=== PATIENT | female | born 1955 | race Caucasian/White ===

== ENCOUNTER 2025-01-01 21:36 | Emergency (ER) | payer MEDICARE, SELFPAY ==
--- OUTSIDE RECORDS SUMMARY | 2024-12-08 09:45 | XMS_ITS | Encounter Summary ---
Author Organization [facility] Address [address] [place] [id number] Care Team Providers Care Incident Response Lead Name Role Phone Juan A Gomez MD Primary Care Provider Reason for Referral * Imaging (Routine) - Open Specialty Diagnoses / Procedures Referred By Melva knight Referred To Contact Radiology Diagnoses Lung nodule Procedures CT CHEST WO CONTRAST Yasemin Mcdonald MD [address] [place] [address] Phone: tel: fax: Referral ID Status Reason Start Date Expiration Date Visits Re quested Visits Authorized [id number] Open 12/10/2025 1 1 Reason for Visit * Reason Comments COPD 1 year f/u Encounter Details Date Type Department Care Team (Late st Contact Info) Description 12/08/2024 8:45 AM CDT Office Visit [facility] [place] [address] [place] [address] Yasemin Mcdonald MD [address] [place] [address] Lung nodule (Primary Dx); Chronic obstructive pulmonary disease, unspecified COPD type (HCC); Dyspnea, unspecified type Social History Tobacco Use Types Packs/Day Years Used Date Smoking Tobacco: Former Cigarettes 3 32 1 958 - 1989 Smokeless Tobacco: Never Comments Unknown Sex and Gender Information Value Date Recorded Sex Assigned at Not on file Legal Sex Female 10:11 AM CDT Gender Identity Not on file Sexual Orientation Not on file documented as of this encounter Last Filed Vital Signs Vital Sign Reading Time Taken Comments Blood Pressure 132/82 12/08/2024 8:44 AM CDT Pulse 65 12/08/2024 8:44 AM CDT Temperature 36.4 C (97.6 F) 12/08/2024 8:44 AM CDT Respiratory Rate 18 12/08/2024 8:44 AM CDT Oxygen Saturation 96% 12/08/2024 8:44 AM CDT RA @ rest Inhaled Oxygen Concentration - - Weight 86.4 kg (190 lb 6.4 oz) 12/08/2024 8:44 A M CDT Height 165.1 cm (5' 5 ) 12/08/2024 8:44 AM CDT Body Mass Index 31.68 12/08/2024 8:44 AM CDT documented in this encounter Patient Instructions * Patient Instructions* Yasemin Mcdonald MD - 12/08/2024 8:45 AM CDT Continue albuterol as needed. I refilled it Continue Singulair. I refilled it Follow-up in 1 year documented in this encounter Progress Notes * Brittani Garcia RN - 12/08/2024 8:45 AM CDT BMI: Body mass index is 31.68 kg/m??. Follow up Plan: Provided exercise education for BMI above normal parameters. Provided nutritional education for BMIabove normal parameters. * Yasemin Mcdonald MD - 12/08/2024 8:45 AM CDT 12/08/2024 Aditi Wise PRIMARY CARE PROVIDER: Juan A Triplett REFERRING PROVIDER: Dr. Villar REASON FOR VISIT: Follow-up COPD HISTORY OF PRESENT ILLNESS Ms. Wise is a pleasant 68 year old woman who presents today for evaluation of shortness of Breath. She was kindly referred by Dr. Villar from Cardiology. Please see my initial consultation regarding this patient. She had started her on Spiriva, that did not help her, we stopped it. She feels better. She is taking Singulair. She had episodes of shortness of breath. This happened while [place] was [place] Also she was exposed to smoke. She is using albuterol as needed. She feels better. Had a CT chestwhich showed 6 mm nodule left upper lobe. Had some ground-glass opacities. Repeat CT chest showed stability. She has not had bronchitis since last time I saw her. Repeated CT chest a year after last CT shows stability. Review of Systems: As per HPI, otherwise all others negative. PHYSICAL EXAMINATION CONSTITUTIONAL: The patient is alert, oriented, well-developed, good nutrition, well-groomed. ENT: Inspection of nasal mucosa and septum is normal. Mallampati score of 3-4. She wears dentures. NECK: No masses. Normal symmetry. Trachea is in good position. Thyroid is not enlarged. No tenderness. No JVD. RESPIRATORY: Normal symmetry and expansion on inspection. No use of accessory muscles. Percussion of the chest is normal with no hyperresonance. Palpation of the chest shows no subcutaneous emphysema. Auscultation of the lungs shows normal breath sounds bilaterally. No rubs. CARDIOVASCULAR: Normal S1 and S2. No murmurs, rubs, or gallops. No leg swelling or varicosities. GASTROINTESTINAL: No masses or tenderness. Normal bowel sounds. No hepatosplenomegaly. LYMPHATICS: No increased lymph nodes in the neck or axillae. MUSCULOSKELETAL: Normal muscle tone and strength. No flaccidity or spasticity. Gait and stations are normal. EXTREMITIES: No clubbing, inflammation or petechiae. SKIN: No skin rashes, lesions or ulcers. NEUROLOGICAL/PSYCHIATRIC: The patient is oriented to time, place, and person. Mood and affect currently are normal. DATABASE Vitals: 12/08/24 0844 BP: 132/82 BP Site: Right Arm Patient Position: Sitting Pulse: 65 Resp: 18 Temp: 97.6 ??F (36.4 ??C) TempSrc: Temporal SpO2: 96% Weight: 190 lb 6.4 oz (86.4 kg) Height: 5' 5 SpO2: 96 % (RA @ rest) PFT 12/07/2017: - Spirometry: FEV1 is mildly reduced, FVC is normal, FEV1/FVC is reduced - Bronchodilator response: FEV1 improved by only 2% - Lung volumes: Total lung capacity is normal, residual volume is normal - Gas-exchange: Diffusion capacity is normal Impression 1. Mild obstructive ventilatory defect 2. No meaningful response to bronchodilators. This does not exclude positive clinical response to bronchodilators 3. Lung volumes are normal 4. Gas exchange is normal CXR 09/17/19: Negative for left rib fracture. Stable chest radiograph with no acute cardiopulmonary disease evident CT Chest: none PET: none Labs 04/14/18: CBC with differential, reviewed: EOS 6.3%. Echo 11/25/2017: 1. Mildly depressed LVEF of 50%. Mild LVH. TDS 2. Mildly dilated RV size with normal function. 3. TDS cannot see AV morphology. Recommend Cardiac MRI if morphology of the valve is a concern or murmur heard. 4. Calcified papillary muscle. CT chest 06/24/2022: 6 mm indeterminate nodule posterior left upper lobe lung. I do not know if the patient is in a highrisk category or low risk category. Fleischner Society guidelines recommend, for a 6-8 millimeter nodule, CT at 6-12 months in a low- risk or high risk patient. If it is stable, CT at 18 months would be recommended if the patient is in high risk category A few other small collections of benign appearing scarring posterior left lung Generalized arterial plaque No other suspicious findings seen CT chest 01/05/2023: Several groundglass opacities seen throughout the lungs bilaterally. The largest is actually within the right perihilar region measuring approximately 2 cm. All of these are unchanged from 06/24/2022) minutes is warranted repeat chest CT 3-[address] chest 07/05/2023: Groundglass and nodular opacities redemonstrated throughout both lungs. This likely represents an infectious or inflammatory process. Follow-up in 3-6 months for continued surveillance is recommended. CT chest 07/05/2024: Lungs show stable, sub-solid bilateral upper lobe lung nodules. A dominant nodule on right measures 3 cm from 3.2 cm previously. Dominant nodule on left measures 2.2 cm from the same previously. 2 additional smaller left upper lobe lung nodules are stable. No new lung abnormality is noted. No pleural or pericardial effusion or lymphadenopathy is seen. Visualized upper abdomen and the bones show no significant abnormality, except for a stable cirrhotic morphology of the liver without an obvious focal mass in its visualized portion. Spleen is not enlarged.. Assessment: Ms. Wise is a pleasant 69-year-old woman with mild COPD. Continue albuterol as needed for now. Holdoff on controller inhalers. Continue Singulair. Repeated CT chest shows stability. The ground-glass nodule has been stable for about 2 years. They need follow up since there ground-glass. Repeat CT chest in 1 year, follow up me 1 week after that. PLAN Continue albuterol as needed. I refilled it Continue Singulair. I refilled it Follow-up in 1 year, CT chest 1 week prior Patient verbalized understanding of plan and recommendations. We discussed the risks, benefits, side effects, and alternatives of the above plan. Shared decision making was used to determine the overall plan. The patient was given an after visit summary that included medications with directions, allergies, diagnoses and orders from this visit, and patient instruction information. I have informed the patient to contact our office sooner with new or worsening symptoms. Thank you for allowing us to participate in the care of this patient. CC: Dr. Jason Mcdonald MD [facility] board-certified Critical Care Medicine ABI board-certified Pulmonary Medicine [facility] board-certified Internal Medicine documented in this encounter Plan of Treatment Upcoming Encounters Date Type Department Care Team (Late st Contact Info) Description 12/19/2025 8:15 AM CDT Office Visit [facility] [place] [address] [place] [address] Yasemin Mcdonald MD [address] [facility] [place] [address] Scheduled Orders Name Type Priority Associated Diagnoses Orde r Schedule CT CHEST WO CONTRAST Imaging Routine Lung nodule Expected: 12/10/2025, Expires: 03/10/2026 documented as of this encounter Visit Diagnoses Diagnosis Lung nodule- Primary Solitary pulmonary nodule Chronic obstructive pulmonary disease, unspecified COPD type (HCC) Dyspnea, unspecified type documented in this encounter Care Teams Incident Response Lead Relationship Specialty Start Date End Date Juan A Gomez MD [address] [place] [address] PCP - General Family Medicine 07/28/19 documented as of this encounter
--- NOTE | 2025-01-01 21:41 | HMH.EDGENADL ---
Discharge Plan Disposition Patient Disposition: Home, Self-Care Referrals Follow up/Referrals: Provider,MD Tawnya [Primary Care Provider, Medical] - See instructions Activity Restrictions/Add. Instructions Additional Instructions/Restrictions: Discontinue your lisinopril. Please follow-up with your primary care provider. Please return to the emergency department if you develop any new or worsening symptoms or become concerned for your health. Clinical Impressions Clinical Impression: Angioedema Print Language Print Language: Ethiopian Discharge ED Provider: Viral An General Adult HPI <Viral An MD - Last Filed: 01/02/25 00:20> General Chief complaint: Allergic Reaction Stated complaint: diff breathing, itching, swelling Time Seen by Provider: 01/01/25 21:37 History of Present Illness HPI narrative: Aditi Wise is a 69-year-old female who presents to the emergency department with possible allergic reaction. Patient states that approximately 30 minutes prior to arrival, she felt full body itching and swelling to her hard palate. She states that she has dentures and they do not fit on the top now secondary to the swelling. She denies any shortness of breath. She denies any new foods or medications. She does state that she takes lisinopril. She states that this has not happened before. Related Data Allergies Allergy/AdvReac Type Severity Reaction Status Date / Time No Known Allergies Allergy Verified 01/01/25 21:45 PFS <Viral An MD - Last Filed: 01/02/25 00:20> [facility] Disclaimer: The information contained in this section may have been updated after the patient was seen, as this information can be updated by other users. Social History (Updated 01/02/25 @ 00:20 by Viral An MD) Smoking Status: Unknown if ever smoked alcohol intake: never current occupational status: employed and previously employed Travel in the last 8 weeks?: None Have you lived/traveled outside US in past 30 days?: No Contact w/someone who lives/traveled outside US past 30 days?: No Exposure to someone with infectious disease in past 14 days?: No Do you have a fever (greater than 100.4 F or 38 C)?: No Have you tested positive for COVID-19?: No Exposed to someone with COVID-19 in past 14 days?: No Do you have a sore throat?: No Do you have a cough?: No Do you have any weakness?: No Do you have any diarrhea?: No Are you experiencing any unusual bleeding?: No Do you have any muscle aches/pain?: No Do you have any abdominal pain?: No Are you experiencing loss of taste or smell?: No <Viral An MD - Last Filed: 01/02/25 00:20> ROS Obtained: Yes Systems reviewed as appropriate & no additional complaints except as documented Physical Exam <Viral An MD - Last Filed: 01/02/25 00:20> General General appearance: alert Comment: Appears anxious and tachypneic Head Head exam: atraumatic Eye Eye exam: Present normal appearance ENT ENT exam: Present normal external ear exam and other (Sublingual edema, enlarged tongue, edema of the hard palate) Neck Neck exam: Present full ROM Chest Chest inspection: Present symmetric chest wall rise Respiratory Respiratory exam: Present normal lung sounds bilaterally and respiratory distress (Increased work of breathing); Absent wheezes or stridor Cardiovascular Cardiovascular exam: Present regular rate and normal rhythm Abdominal Exam Abdominal exam: Present soft; Absent tenderness or guarding Extremities Exam Extremities exam: Present normal inspection Back Exam Back exam: Present normal inspection Neurological Exam Neurological exam: Present alert and oriented X3 Psychiatric Psychiatric exam: Present normal affect Skin Skin exam: Present warm, dry and rash (Erythema to her anterior chest wall and neck. Face appears flushed.) Medical Decision Making <Viral An MD - Last Filed: 01/02/25 00:20> Medical Records Screening: Per USPSTF and CDC recommendations, given the prevalence of disease in our region, it is our hospital?s policy to screen for HIV and viral Hepatitis for all patients aged 18 and over and those with ongoing risk factors. Geoffrey Inquiry Pt receiving controlled substance: No Vital Signs: 01/01/25 21:45 01/01/25 21:46 01/01/25 22:00 Temperature 97.8 F Temperature Source Oral Pulse Rate 89 85 Pulse Rate [Left] 98 H Respiratory Rate 22 20 Blood Pressure Blood Pressure [Right Arm] 144/59 H Blood Pressure Mean [Right Arm] 87 02 Sat by Pulse Oximetry 95 98 95 Oxygen Delivery Method Room Air 01/01/25 22:15 01/01/25 22:30 01/01/25 22:45 Temperature Temperature Source Pulse Rate 84 80 72 Pulse Rate [Left] Respiratory Rate 20 13 22 Blood Pressure Blood Pressure [Right Arm] Blood Pressure Mean [Right Arm] 02 Sat by Pulse Oximetry 95 95 94 L Oxygen Delivery Method 01/02/25 00:04 01/02/25 00:06 Temperature Temperature Source Pulse Rate 89 86 Pulse Rate [Left] Respiratory Rate 18 15 Blood Pressure 120/40 L Blood Pressure [Right Arm] Blood Pressure Mean [Right Arm] 02 Sat by Pulse Oximetry 95 95 Oxygen Delivery Method Lab Data Lab Results 01/01/25 21:45: WBC 10.3, RBC 4.08 L, Hgb 12.4, Hct 36.9 L, MCV 90.4, MCH 30.4, MCHC 33.6, RDW 12.7, Plt Count 266, MPV 10.2, Neut % (Auto) 31.9 L, Lymph % (Auto) 57.7 H, [place] % (Auto) 7.1, Eos % (Auto) 2.7, Baso % (Auto) 0.3, Neut # (Auto) 3.3, Lymph # (Auto) 5.9 H, [place] # (Auto) 0.7, Eos # (Auto) 0.3, Baso # (Auto) 0.0, Total Counted 100, Neutrophils % (Manual) 30 L, Lymphocytes % (Manual) 65 H, Monocytes % (Manual) 4, Eosinophils % (Manual) 1, PT 10.7, INR 0.96, APTT 23.7, Sodium 135 L, Potassium 4.4, Chloride 102, Carbon Dioxide 25, Anion Gap 12.4, BUN 24 H, Creatinine 1.30 H, Estimated Creat Clear 55, Estimated GFR 41 L, Est GFR ( Amer) 49 L, Glucose 151 H, Calcium 9.8, Total Bilirubin 0.5, AST 29, ALT 21, Alkaline Phosphatase 81, Total Protein 6.7, Albumin 4.2, Globulin 2.5, Albumin/Globulin Ratio 1.7, HCV Ab COLLINS w/Rflx PCR Qn Negative, HIV Ag/Ab Combo Qual Negative 01/01/25 21:45 01/01/25 21:45 Orders (Tests/Meds): ED MEDICATIONS Discontinued Medications Generic Name Dose Route Start Last Admin Trade Name Freq PRN Reason Stop Dose Admin Diphenhydramine HCl 50 mg 01/01/25 21:38 01/01/25 21:49 Diphenhydramine 50mg/Ml Vial IV 01/01/25 21:39 50 mg ONCE ONE Administration Epinephrine HCl 0.3 mg 01/01/25 21:38 01/01/25 21:47 Epinephrine 1 Mg/Ml Ampul IM 01/01/25 21:39 0.3 mg ONCE ONE Administration Tranexamic Acid 1,000 mg/ 260 mls @ 32.5 mls/hr 01/01/25 21:43 01/01/25 21:50 Sodium Chloride IV 01/01/25 21:44 32.5 mls/hr ONCE ONE Administration Methylprednisolone Sodium Succinate 125 mg 01/01/25 21:38 01/01/25 21:47 Methylprednisolone Sod Succ 125mg Vial IV 01/01/25 21:39 125 mg ONCE ONE Administration ORDERS Category Date Time Status CBC w/Auto Diff [Complete Blood Count Auto Diff] Stat Lab 01/01/25 21:45 Completed CMP [Comprehensive Metabolic Panel] Stat Lab 01/01/25 21:45 Completed HIV Combo Stat Lab 01/01/25 21:45 Completed Hepatitis C Ab Qual. W/ RFX Stat Lab 01/01/25 21:45 Completed PT INR [Prothrombin Time INR] Stat Lab 01/01/25 21:45 Completed PTT [Activated Partial Thrombo Time] Stat Lab 01/01/25 21:45 Completed Medical Decision Narrative: Aditi Wise is a 69-year-old female who presents to the emergency department with possible allergic reaction. Patient states that approximately 30 minutes prior to arrival, she felt full body itching and swelling to her hard palate. She states that she has dentures and they do not fit on the top now secondary to the swelling. She denies any shortness of breath. She denies any new foods or medications. She does state that she takes lisinopril. She states that this has not happened before. On arrival, patient is hemodynamically stable, afebrile, maintaining appropriate oxygen saturation on room air. Physical exam, stated above, revealed an anxious appearing female with increased work of breathing. She is speaking in mildly shortened sentences. She has edema to her sublingual space and her tongue appears enlarged. She does appear to have swelling of the hard palate. She has no wheezing and has good air movement bilaterally. She does appear to have an erythematous rash to her anterior chest wall up to her neck. Due to concern for lisinopril induced angioedema, patient was immediately administered a 0.3 mg of intramuscular epinephrine, 50 mg of IV Benadryl, 125 mg of methylprednisolone and 1 g of IV TXA over 10 minutes. Differential diagnosis includes, but is not limited to: Lisinopril induced angioedema, C1 esterase deficiency, histamine allergic reaction, among others. The most morbid conditions were considered and workup was based on these. Basic lab work was obtained. On reassessment, patient is sleeping comfortably. She is not in any distress. Her redness seems to have improved. Vital signs have remained stable. CBC is unremarkable nonactionable. Coags are unremarkable nonactionable. Mildly low sodium of 135. Creatinine and BUN are mildly elevated at 1.3 and 24 respectively. Is unclear with the patient's baseline's. These are grossly unremarkable nonactionable. At this time, patient's care was handed off to the oncoming physician, Dr. Laird, pending minimal 3-hour observation for recurrence of symptoms and symptomatic improvement. Patient was placed into ED observation status at 2200 for continuous cardiac monitoring and frequent reassessments. Total time in ED observation was [] <Kenny Laird MD - Last Filed: 01/02/25 00:45> Vital Signs: 01/01/25 21:45 01/01/25 21:46 01/01/25 22:00 Temperature 97.8 F Temperature Source Oral Pulse Rate 89 85 Pulse Rate [Left] 98 H Respiratory Rate 22 20 Blood Pressure Blood Pressure [Right Arm] 144/59 H Blood Pressure Mean [Right Arm] 87 02 Sat by Pulse Oximetry 95 98 95 Oxygen Delivery Method Room Air 01/01/25 22:15 01/01/25 22:30 01/01/25 22:45 Temperature Temperature Source Pulse Rate 84 80 72 Pulse Rate [Left] Respiratory Rate 20 13 22 Blood Pressure Blood Pressure [Right Arm] Blood Pressure Mean [Right Arm] 02 Sat by Pulse Oximetry 95 95 94 L Oxygen Delivery Method 01/02/25 00:04 01/02/25 00:06 Temperature Temperature Source Pulse Rate 89 86 Pulse Rate [Left] Respiratory Rate 18 15 Blood Pressure 120/40 L Blood Pressure [Right Arm] Blood Pressure Mean [Right Arm] 02 Sat by Pulse Oximetry 95 95 Oxygen Delivery Method Lab Data Lab Results 01/01/25 21:45: WBC 10.3, RBC 4.08 L, Hgb 12.4, Hct 36.9 L, MCV 90.4, MCH 30.4, MCHC 33.6, RDW 12.7, Plt Count 266, MPV 10.2, Neut % (Auto) 31.9 L, Lymph % (Auto) 57.7 H, [place] % (Auto) 7.1, Eos % (Auto) 2.7, Baso % (Auto) 0.3, Neut # (Auto) 3.3, Lymph # (Auto) 5.9 H, [place] # (Auto) 0.7, Eos # (Auto) 0.3, Baso # (Auto) 0.0, Total Counted 100, Neutrophils % (Manual) 30 L, Lymphocytes % (Manual) 65 H, Monocytes % (Manual) 4, Eosinophils % (Manual) 1, PT 10.7, INR 0.96, APTT 23.7, Sodium 135 L, Potassium 4.4, Chloride 102, Carbon Dioxide 25, Anion Gap 12.4, BUN 24 H, Creatinine 1.30 H, Estimated Creat Clear 55, Estimated GFR 41 L, Est GFR ( Amer) 49 L, Glucose 151 H, Calcium 9.8, Total Bilirubin 0.5, AST 29, ALT 21, Alkaline Phosphatase 81, Total Protein 6.7, Albumin 4.2, Globulin 2.5, Albumin/Globulin Ratio 1.7, HCV Ab COLLINS w/Rflx PCR Qn Negative, HIV Ag/Ab Combo Qual Negative Orders (Tests/Meds): ED MEDICATIONS Discontinued Medications Generic Name Dose Route Start Last Admin Trade Name Richardsonq PRN Reason Stop Dose Admin Diphenhydramine HCl 50 mg 01/01/25 21:38 01/01/25 21:49 Diphenhydramine 50mg/Ml Vial IV 01/01/25 21:39 50 mg ONCE ONE Administration Epinephrine HCl 0.3 mg 01/01/25 21:38 01/01/25 21:47 Epinephrine 1 Mg/Ml Ampul IM 01/01/25 21:39 0.3 mg ONCE ONE Administration Tranexamic Acid 1,000 mg/ 260 mls @ 32.5 mls/hr 01/01/25 21:43 01/01/25 21:50 Sodium Chloride IV 01/01/25 21:44 32.5 mls/hr ONCE ONE Administration Methylprednisolone Sodium Succinate 125 mg 01/01/25 21:38 01/01/25 21:47 Methylprednisolone Sod Succ 125mg Vial IV 01/01/25 21:39 125 mg ONCE ONE Administration ORDERS Category Date Time Status CBC w/Auto Diff [Complete Blood Count Auto Diff] Stat Lab 01/01/25 21:45 Completed CMP [Comprehensive Metabolic Panel] Stat Lab 01/01/25 21:45 Completed HIV Combo Stat Lab 01/01/25 21:45 Completed Hepatitis C Ab Qual. W/ RFX Stat Lab 01/01/25 21:45 Completed PT INR [Prothrombin Time INR] Stat Lab 01/01/25 21:45 Completed PTT [Activated Partial Thrombo Time] Stat Lab 01/01/25 21:45 Completed Medical Decision Narrative: Aditi Wise is a 69-year-old female who presents to the emergency department with possible allergic reaction. Patient states that approximately 30 minutes prior to arrival, she felt full body itching and swelling to her hard palate. She states that she has dentures and they do not fit on the top now secondary to the swelling. She denies any shortness of breath. She denies any new foods or medications. She does state that she takes lisinopril. She states that this has not happened before. On arrival, patient is hemodynamically stable, afebrile, maintaining appropriate oxygen saturation on room air. Physical exam, stated above, revealed an anxious appearing female with increased work of breathing. She is speaking in mildly shortened sentences. She has edema to her sublingual space and her tongue appears enlarged. She does appear to have swelling of the hard palate. She has no wheezing and has good air movement bilaterally. She does appear to have an erythematous rash to her anterior chest wall up to her neck. Due to concern for lisinopril induced angioedema, patient was immediately administered a 0.3 mg of intramuscular epinephrine, 50 mg of IV Benadryl, 125 mg of methylprednisolone and 1 g of IV TXA over 10 minutes. Differential diagnosis includes, but is not limited to: Lisinopril induced angioedema, C1 esterase deficiency, histamine allergic reaction, among others. The most morbid conditions were considered and workup was based on these. Basic lab work was obtained. On reassessment, patient is sleeping comfortably. She is not in any distress. Her redness seems to have improved. Vital signs have remained stable. CBC is unremarkable nonactionable. Coags are unremarkable nonactionable. Mildly low sodium of 135. Creatinine and BUN are mildly elevated at 1.3 and 24 respectively. Is unclear with the patient's baseline's. These are grossly unremarkable nonactionable. At this time, patient's care was handed off to the oncoming physician, Dr. Laird, pending minimal 3-hour observation for recurrence of symptoms and symptomatic improvement. Patient was placed into ED observation status at 2200 for continuous cardiac monitoring and frequent reassessments. Sisi FIGUEROA: I assumed care of the patient at the time of handoff from the prior provider. On reassessment, patient reports marked symptomatic improvement and continues to appear comfortable. She reports that she is feeling great and is ready to go. Given this, patient was needed for her discharge with outpatient management and does not require admission. Total time in observation 3 hours and 45 minutes. Interactive discussion was had with patient regarding her discharge. Less than 30 minutes were utilized to prepare discharge. Critical Care <Viral An MD - Last Filed: 01/02/25 00:20> Critical Care Time Critical Care Time: Yes Attestation: On 01/01/25, the high probability of a clinically significant, sudden or life threatening deterioration of the following system(s) required my full and direct attention, intervention and personal management. The time I documented below is in addition to time spent performing reported procedures but includes the following listed in this critical care notation. Total Time Total Critical Care Time: 35
[2025-01-01 21:45] VITALS: PULSE 89; O2SAT 95
[2025-01-01 21:46] VITALS: BP 144/59; PULSE 98; RESP 22; TEMP 36.6; O2SAT 98; BMI 30.6
[2025-01-01] MEDS: METHYLPREDNISOLONE SOD SUCC 125MG VIAL 125 MG IV (21:47)
--- OUTSIDE RECORDS SUMMARY | 2025-01-01 21:51 | XMS_ITS | Encounter Summary ---
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 Name Role Phone Juan A Gomez MD Primary Care Provider [phone] Zac Justin MD Unavailable Prosper Cutler MD Unavailable Jose Carlos Dunn DO Unavailable Rupert Byers MD Unavailable [phone] Ines Villar MD Unavailable [phone] Opal Henderson MD Unavailable Encounter Details Date Type Department Care Team (Late st Contact Info) Description 02/06/2016 Transcribe Orders [facility] [address] [place] [address] Juan A Gomez MD [address] [place] [address] Encounter for screening mammogram for malignant neoplasm of breast (Primary Dx) Social History Tobacco Use Types Packs/Day Years Used Date Smoking Tobacco: Former Cigarettes 2 17 0 11/20/1972 - 11/20/1989 Alcohol Use Standard Drinks/Week Comments Yes 0 (1 standard drink = 0.6 oz pur e alcohol) rarely Comments No Sex and Gender Information Value Date Recorded Sex Assigned at Not on file Legal 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 Narrative 02/21/2016 4:23 PM SPINNING ROOM WORKER SCREENING DIGITAL BILATERAL MAMMOGRAPHY WITH DIGITAL BREAST TOMOSYNTHESIS (3-D) Indication: Routine screening. Comparison: 02/18/15, 02/15/14, 11/29/12 Breast Composition:. There are scattered fibroglandular densities. Technique: The exam was done with digital breast tomosynthesis and was reviewed with computer-aided detection (CAD). Findings: There are no suspicious nodules, suspicious clusters of microcalcifications, or areas of architectural distortion to suggest malignancy. No significant change from the prior exams. Juan A Gomez MD IMG MAMMOGRAPHY ORDERABLES F inal Result documented in this encounter Visit Diagnoses Diagnosis Encounter for screening mammogram for malignant neoplasm of breast- Primary Other screening mammogram Encounter for screening mammogram for malignant neoplasm of breast Other screening mammogram documented in this encounter Additional Health Concerns Infection Onset Date Last Indicated Resolved Time COVID - 19 Rule Out 01/17/2020 01/17/2020 01/17/20 20 7:48 PM CDT COVID - 19 Rule Out 04/11/2020 04/11/2020 04/12/19 21 3:29 PM SPINNING ROOM WORKER COVID - 19 Confirmed 04/11/2020 04/11/2020 021 12:24 AM SPINNING ROOM WORKER documented as of this encounter Care Teams Dough Mixing Machine Operator Relationship Specialty Start Date End Date Juan A Gomez MD [address] [place] [id number] PCP - General Family Medicine 02/20/11 Zac Justin MD [address] [place] [address] Cardiology 06/29/13 11/16/17 Prosper Cutler MD [address] [place] [address] Otolaryngology 07/10/15 Jose Carlos Dunn DO [address] [place] [address] Consulting Physician Cardiology 02/06/16 11/16/17 Rupert Byers MD [address] [place] [address] Obstetrics & Gynecology Gynecology 02/06/16 Inse Villar MD [address] [place] [phone] Internal Medicine - Cardiovascular Disease 11/17/17 Opal Henderson MD [address] [place] [phone] Cardiology 11/29/17 06/17/22 documented as of this encounter Additional Source Comments IMPORTANT NOTICES REGARDING PATIENT RECORDS DISCLOSED THROUGH CARE EVERYWHERE:1. If the informationreleased to you contains information about AIDs or HIVtest results, that information has been disclosed to you from records whoseconfidentiality is protected by state law ([place]RS 214.625). State law proh ibitsyou from making any further disclosure of such information relating to AIDS orHIV without the specific written consent of the person to whom such informationpertains, or as otherwise permitted by state law. A general authorization forthe release of medical or other information is NOT sufficient for this purpose.2. If the information released to you contains information about alcohol ordrug abuse diagnosis, treatment for such abuse, or referrals for treatment, andif the release was made by a program as defined in 42 CFR 2.11, thisinformation has been disclosed to you from records protected by Federalconfidentiality rules ( TheFederal rules restrict any use of the information to criminally investigate orprosecute any alcohol or drug abuse patient.3. If the information released to you contains information about a person'smental health or chemical dependency, you may not redisclose or otherwisereveal information concerning the mental health or chemical dependency of thatperson, beyond the purpose for which the disclosure was made, without firstobtaining that person's specific written consent to the redisclosure. [id number].[facility]
--- OUTSIDE RECORDS SUMMARY | 2025-01-01 21:51 | XMS_ITS | Encounter Summary ---
Author Organization [employer] Address [address] [place] [address] Care Team Providers Care Food Service Sales Representatives Name Role Phone Juan A Gomez MD Primary Care Provider [phone] Prosper Cutler MD Unavailable [phone] Rupert Byers MD Unavailable [phone] Ines Villar MD Unavailable [phone] Opal Henderson MD Unavailable [phone] Reason for Referral * Preauth (Routine) - Closed Specialty Diagnoses / Procedures Referred By Contac t Referred To Contact Radiology Diagnoses Shortness of breath Procedures CT chest without contrast Juan A Gomez MD [address] [place] [address] Phone: tel: fax: Referral ID Status Reason Start Date Expiration Date Visits Re quested Visits Authorized [id number] Closed 06/23/2022 08/22/2022 1 1 CE CAPTAIN PRECINCT Encounter Details Date Type Department Care Team (Late st Contact Info) Description 06/02/2022 Transcribe Orders Central Scheduling [address] [id number] Juan A Gomez MD [address] [facility] [place] [address] Shortness of breath (Primary Dx) Social History Tobacco Use Types Packs/Day Years Used Date Smoking Tobacco: Former Cigarettes 2 17 0 11/20/1972 - 11/20/1989 Smokeless Tobacco: Never Alcohol Use Standard Drinks/Week Comments Yes 0 (1 standard drink = 0.6 oz pur e alcohol) rarely Safety and Environment Answer Date Devon rded How often does anyone, rod adam family and friends, physically hurt you? Not on file 05/21/2022 How often does anyone, rod adam family and friends, insult or talk down to you? Not on file 05/21/2022 How often does anyone, rod adam family and friends, threaten you with harm? Not on file 05/21/2022 How often does anyone, rod adam family and friends, scream or curse at you?' Not on file 05/21/2022 Comments No Sex and Gender Information Value Date Recorded Sex Assigned at Not on file Legal Sex Female 1:32 AM POLICE CAPTAIN PRECINCT Gender Identity Not on file Sexual Orientation Not on file Occupation Industry Job Start Date Job End Date Not on file Not on file Not on file Not on file documented as of this encounter Plan of Treatment Not on file documented as of this encounter Results * CT chest without contrast (06/24/2022 11:01 AM CDT) Anatomical Region Laterality Modality Chest, CTBODY Computed Tomogra phy 06/24/2022 12:1 0 PM CDT Impressions 06/24/2022 12:17 PM CDT 6 mm indeterminate nodule posterior left upper lobe lung. I do not know if the patient is in a high risk category or low risk category. Fleischner Society guidelines recommend, for a 6-8 millimeter nodule, CT at 6-12 months in a low-risk or high risk patient. If it is stable, CT at 18 months would be recommended if the patient is in high risk category A few other small collections of benign appearing scarring posterior left lung Generalized arterial plaque No other suspicious findings seen [id number] Narrative 06/24/2022 12:17 PM CDT NONCONTRAST CHEST CT: Indication: Shortness of breath. No other 3.. Technique: Spiral axial images were made through chest, archived at 3 mm. Findings: Lungs show no gross fibrosis or interstitial disease. Within posterior left upper lobe, axial image 20, there is a 6 mm noncalcified nodule with mildly spiculated borders. Just lateral to this, from about image 14 through 19, there is some slight patchy scarring. There is a dense benign granuloma in the same vicinity on image 21. Mild posterior scarring posterior left lower lobe from about image 28 through 32. No other lung nodule or mass or infiltrate is visible, or significant airway abnormality. No fluid/mass/plaque in pleural or pericardial space There is no evident adenopathy within dionisio or mediastinum or upper abdomen, or chest wall. Heart size is normal. Aorta shows mild scattered plaque without dilation. Upper abdomen shows no mass or abnormal fluid There is no evident lytic or blastic bony focus.. Procedure Note Cruz Bee Jr., MD - 06/24/[address]: Indication: Shortness of breath. No other 3.. Technique: Spiral axial images were made through chest, archived at 3mm. Findings: Lungs show no gross fibrosis or interstitial disease. Within posterior left upper lobe, axial image 20, there is a 6 mmnoncalcified nodule with mildly spiculated borders. Just lateral to this, from about image 14 through 19, there is some slightpatchy scarring. There is a dense benign granuloma in the same vicinity onimage 21. Mild posterior scarring posterior left lower lobe from aboutimage 28 through 32. No other lung nodule or mass or infiltrate is visible, or significantairway abnormality. No fluid/mass/plaque in pleural or pericardial space There is no evident adenopathy within dionisio or mediastinum or upperabdomen, or chest wall. Heart size is normal. Aorta shows mild scattered plaque withoutdilation. Upper abdomen shows no mass or abnormal fluid There is no evident lytic or blastic bony focus.. IMPRESSION: 6 mm indeterminate nodule posterior left upper lobe lung. I do not knowif the patient is in a high risk category or low risk category. [facility] guidelines recommend, for a 6-8 millimeter nodule, CT at 6-12months in a low-risk or high risk patient. If it is stable, CT at 18 months would be recommended if thepatient is in high risk category A few other small collections of benign appearing scarring posterior leftlung Generalized arterial plaque No other suspicious findings seen [id number] Juan A Gomez MD IMG CT ORDERABLES Final Resu lt documented in this encounter Visit Diagnoses Diagnosis Shortness of breath- Primary Shortness of breath documented in this encounter Care Teams Food Service Sales Representatives Relationship Specialty Start Date End Date Juan A Gomez MD [address] [facility] [place] [address] PCP - General Family Medicine 02/20/11 Prosper Cutler MD [address] [place] [address] Otolaryngology 07/10/15 Rupert Byers MD [address] [facility] [address] Obstetrics & Gynecology Gynecology 02/06/16 Ines Villar MD [address] [place] [address] Internal Medicine - Cardiovascular Disease 11/17/17 Opal Henderson MD [address] [place] [phone] Cardiology 11/29/17 06/17/22 documented as of [...] person's specific written consent to the redisclosure. [id number].[facility]
--- OUTSIDE RECORDS SUMMARY | 2025-01-01 21:51 | XMS_ITS | Encounter Summary ---
Author Organization [employer] Address [address] [place] [address] Care Team Providers Care Painter Name Role Phone Juan A Gomez MD Primary Care Provider [phone] Prosper Cutler MD Unavailable Rupert Byers MD Unavailable [phone] Ines Villar MD Unavailable [phone] Opal Henderson MD Unavailable Encounter Details Date Type Department Care Team (Latest Contact Info) Description 03/05/2020 Transcribe Orders [facility] [address] [id number] Herson Dubon MD, [place] [address] Nausea (Primary Dx); Malignant neoplasm of stomach, unspecified location Social History Tobacco Use Types Packs/Day Years Used Date Smoking Tobacco: Former Cigarettes 2 17 0 11/20/1972 - 11/20/1989 Smokeless Tobacco: Never Alcohol Use Standard Drinks/Week Comments Yes 0 (1 standard drink = 0.6 oz pur e alcohol) rarely Comments No Sex and Gender Information Value Date Recorded Sex Assigned at Not on file Legal Sex Female 1:32 AM STUDENT SERVICES DEAN Gender Identity Not on file Sexual Orientation Not on file Occupation Industry Job Start Date Job End Date Not on file Not on file Not on file Not on file COVID-19 Exposure Response Date Recorded In the last month, have you been in contact with someone who was confirmed or suspected to have Coronavirus / COVID-19? Unable to assess 03/05/2020 5:44 PM STUDENT SERVICES DEAN documented as of this encounter Plan of Treatment Not on file documented as of this encounter Results * ERNIE test-tissue (03/05/2020 9:31 AM STUDENT SERVICES DEAN) Specimen description GASTRIC MUCOSAL BIOPSY [facility] Special Requests NONE 03/05/2020 5:45 PM STUDENT SERVICES DEAN [facility] Culture NEGATIVE AT 24 HOURS (ET: 1 DAY 3 HOURS) 03/06/2020 12:38 PM STUDENT SERVICES DEAN [facility] Gastric Bx BIOPSY SPECIMEN / Unknown 03/05/2020 9:31 AM STUDENT SERVICES DEAN 03/05/2020 5:54 PM STUDENT SERVICES DEAN [facility] Dubon MD, FACS MICROBIOLOGY - G ENERAL ORDERABLES Final Result [facility] [address] [place] [address] documented in this encounter Visit Diagnoses Diagnosis Nausea- Primary Nausea alone Malignant neoplasm of stomach, unspecified location (CMS/HCC) documented in this encounter Additional Health Concerns Infection Onset Date Last Indicated Resolved Time COVID - 19 Rule Out 04/11/2020 04/11/2020 04/12/19 21 3:29 PM STUDENT SERVICES DEAN COVID - 19 Confirmed 04/11/2020 04/11/2020 021 12:24 AM STUDENT SERVICES DEAN documented as of this encounter Care Teams Painter Relationship Specialty Start Date End Date Juan A Gomez MD [address] [place] [address] PCP - General Family Medicine 02/20/11 Prosper Cutler MD [address] [place] [address] Otolaryngology 07/10/15 Rupert Byers MD [address] [place] [address] Obstetrics & Gynecology Gynecology 02/06/16 Ines Villar MD [address] [place] [phone] Internal Medicine - Cardiovascular Disease 11/17/17 Opal Henderson MD [address] [place] [phone] Cardiology 11/29/17 06/17/22 documented as of [...] person's specific written consent to the redisclosure. [id number].[facility]
--- OUTSIDE RECORDS SUMMARY | 2025-01-01 21:51 | XMS_ITS | Encounter Summary ---
Author Organization [employer] Address [address] [place] [address] Care Team Providers Care Director Veterinary Name Role Phone Juan A Gomez MD Primary Care Provider [phone] Zac Justin MD Unavailable [phone] Prosper Cutler MD Unavailable Jose Carlos Dunn DO Unavailable Rupert Byers MD Unavailable [phone] Ines Villar MD Unavailable [phone] Opal Henderson MD Unavailable Encounter Details Date Type Department Care Team (Latest Contact Info) Description 01/30/[address] [facility] Radiology [address] [place] [address] Rupert Byres MD [address] [place] [address] Other screening mammogram (Primary Dx) Social History Tobacco Use Types Packs/Day Years Used Date Smoking Tobacco: Former Cigarettes 2 17 0 11/20/1972 - 11/20/1989 Alcohol Use Standard Drinks/Week Comments No 0 (1 standard drink = 0.6 oz pur e alcohol) Comments No Sex and Gender Information Value Date Recorded Sex Assigned at Not on file Legal Sex Female 1:32 AM ROBOTIC MACHINE TENDER PRODUCTION Gender Identity Not on file Sexual Orientation Not on file Occupation Industry Job Start Date Job End Date Not on file Not on file Not on file Not on file documented as of this encounter Plan of Treatment Not on file documented as of this encounter Results * Mammography screening digital bilateral w/ CAD (02/15/2014 4:40 PM ROBOTIC MACHINE TENDER PRODUCTION) Anatomical Region Laterality Modality Breast Bilateral Mammography 02/15/2014 5:08 PM ROBOTIC MACHINE TENDER PRODUCTION Impressions 02/15/2014 5:10 PM ROBOTIC MACHINE TENDER PRODUCTION Benign (BI-RADS 2) Recommendation: Next mammogram in one year. Narrative 02/15/2014 5:10 PM ROBOTIC MACHINE TENDER PRODUCTION SCREENING DIGITAL BILATERAL MAMMOGRAPHY WITH DIGITAL BREAST TOMOSYNTHESIS (3-D) Indication: Routine screening. Comparison: 11/29/12, 01/12/11, 01/10/10 Breast Composition:. There are scattered fibroglandular densities. Technique: The exam was done with digital breast tomosynthesis and was reviewed with computer-aided detection (CAD). Findings: There are no suspicious nodules, suspicious clusters of microcalcifications, or areas of architectural distortion to suggest malignancy. There is a new small benign dystrophic calcification in the lateral periareolar left breast. Procedure Note Ayush Maloney MD - 02/15/2014 SCREENING DIGITAL BILATERAL MAMMOGRAPHY WITH DIGITAL BREAST TOMOSYNTHESIS(3-D) Indication: Routine screening. Comparison: 11/29/12, 01/12/11, 01/10/10 Breast Composition:. There are scattered fibroglandular densities. Technique: The exam was done with digital breast tomosynthesis and wasreviewed with computer-aided detection (CAD). Findings: There are no suspicious nodules, suspicious clusters ofmicrocalcifications, or areas of architectural distortion to suggestmalignancy. There is a new small benign dystrophic calcification in thelateral periareolar left breast. IMPRESSION: Benign (BI-RADS 2) Recommendation: Next mammogram in one year. Rupert Byers MD IMG MAMMOGRAPHY ORDERABLES Fin al Result documented in this encounter Visit Diagnoses Diagnosis Other screening mammogram- Primary Other screening mammogram documented in this encounter Additional Health Concerns Infection Onset Date Last Indicated Resolved Time COVID - 19 Rule Out 01/17/2020 01/17/2020 01/17/20 20 7:48 PM CDT COVID - 19 Rule Out 04/11/2020 04/11/2020 04/12/19 21 3:29 PM ROBOTIC MACHINE TENDER PRODUCTION COVID - 19 Confirmed 04/11/2020 04/11/2020 021 12:24 AM ROBOTIC MACHINE TENDER PRODUCTION documented as of this encounter Care Teams Director Veterinary Relationship Specialty Start Date End Date Juan A Gomez MD [address] [place] [address] PCP - General Family Medicine 02/20/11 Zac Justin MD [address] [place] [address] Cardiology 06/29/13 11/16/17 Prosper Cutler MD [address] [place] [address] Otolaryngology 07/10/15 Jose Carlos Dunn DO [address] [place] [address] Consulting Physician Cardiology 02/06/16 11/16/17 Rupert Byers MD [address] [place] [address] Obstetrics & Gynecology Gynecology 02/06/16 Ines Villar MD [address] [place] [address] Internal Medicine - Cardiovascular Disease 11/17/17 Opal Henderson MD [address] [place] [address] [place] [address] Cardiology 11/29/17 06/17/22 documented as of [...] person's specific written consent to the redisclosure. [id number].[facility]
--- OUTSIDE RECORDS SUMMARY | 2025-01-01 21:51 | XMS_ITS | Encounter Summary ---
Author Organization [facility] Address [address] [place] [id number] Care Team Providers Care Vamp Seamer Name Role Phone Juan A Gomez MD Primary Care Provider [phone] Reason for Visit * Reason Onset Date Comments Other 12/08/[address] Encounter Details Date Type Department Care Team (Late Contact Info) Description 12/08/2024 Telephone [facility] [address] [address] Rebecca Clinton CRT Other (Chest CT) Social History Tobacco Use Types Packs/Day Years Used Date Smoking Tobacco: Former Cigarettes 3 32 1 8 - 1989 Smokeless Tobacco: Never Comments Unknown Sex and Gender Information Value Date Recorded Sex Assigned at Not on file Legal Sex Female 10:11 AM CDT Gender Identity Not on file Sexual Orientation Not on file documented as of this encounter Miscellaneous Notes * Telephone Encounter - Rebecca Clinton CRT - 12/08/2024 9:27 AM CDT TCT Pt advising Dr. Mcdonald does want to get one more CT next year prior to her appointment & someone from [facility] Scheduling will call to schedule it. Pt verbalized understanding. documented in this encounter Plan of Treatment Upcoming Encounters Date Type Department Care Team (Late st Contact Info) Description 12/19/2025 8:15 AM CDT [facility] [address] [address] Yasemin Mcdonald MD [address] [facility] [place] [address] documented as of this encounter Visit Diagnoses Not on filedocumented in this encounter Care Teams Vamp Seamer Relationship Specialty Start Date End Date Juan A Gomez MD [address] [place] [address] PCP - General Family Medicine 07/28/19 documented as of this encounter
--- OUTSIDE RECORDS SUMMARY | 2025-01-01 21:51 | XMS_ITS | Encounter Summary ---
Author Organization [employer] Address [address] [place] [address] Care Team Providers Care Security Incident Handler Name Role Phone Juan A Gomez MD Primary Care Provider [phone] Prosper Cutler MD Unavailable [phone] Rupert Byers MD Unavailable [phone] Ines Villar MD Unavailable [phone] Opal Henderson MD Unavailable [phone] Reason for Referral * Preauth (Routine) - Closed Specialty Diagnoses / Procedures Referred By Contac t Referred To Contact Radiology Diagnoses Nausea Unspecified abdominal pain Procedures CT Abdomen Pelvis w/wo Contrast per Contrast Protocol Juan A Gomez MD [facility] [place] [address] Phone: tel: fax: Referral ID Status Reason Start Date Expiration Date Visits Re quested Visits Authorized [id number] Closed 03/13/2020 06/10/2020 1 1 L CLEANER TUBE Encounter Details Date Type Department Care Team (Late st Contact Info) Description 03/11/2020 Transcribe Orders Central Scheduling [address] [phone] Juan A Gomez MD [address] [facility] [place] [address] Nausea (Primary Dx); Unspecified abdominal pain Social History Tobacco Use Types Packs/Day Years Used Date Smoking Tobacco: Former Cigarettes 2 17 0 11/20/1972 - 11/20/1989 Smokeless Tobacco: Never Alcohol Use Standard Drinks/Week Comments Yes 0 (1 standard drink = 0.6 oz pur e alcohol) rarely Comments No Sex and Gender Information Value Date Recorded Sex Assigned at Not on file Legal Sex Female 1:32 AM STILL CLEANER TUBE Gender Identity Not on file Sexual Orientation Not on file Occupation Industry Job Start Date Job End Date Not on file Not on file Not on file Not on file COVID-19 Exposure Response Date Recorded In the last month, have you been in contact with someone who was confirmed or suspected to have Coronavirus / COVID-19? Unable to assess 03/05/2020 5:44 PM STILL CLEANER TUBE documented as of this encounter Plan of Treatment Not on file documented as of this encounter Results * CT Abdomen Pelvis w/wo Contrast per Contrast Protocol (03/20/2020 9:04 AM STILL CLEANER TUBE) Anatomical Region Laterality Modality Abdomen, Pelvis, Hip, CTBODY Com puted Tomography 03/20/2020 11:0 5 AM STILL CLEANER TUBE Impressions 03/20/2020 11:16 AM STILL CLEANER TUBE No acute intra-abdominal or pelvic process. [id number] Narrative 03/20/2020 11:[address] ABDOMEN AND PELVIS WITH AND WITHOUT CONTRAST Indication: Nausea. Unspecified abdominal pain. Technique: Multiple axial CT images are obtained of the abdomen and pelvis both prior to and following administration of 100 cc of Omnipaque 350 intravenous contrast agent. Oral contrast was utilized. Comparison: 12/11/2010. Abdominal Findings: Lung bases are clear with exception of a benign calcified granuloma on the left. There is a small stable benign cyst in the subcapsular aspect of the periphery of the right lobe of liver on axial image 37. Postcholecystectomy changes are noted. No suspicious focal hepatic lesion. Spleen, pancreas and adrenals unremarkable. Kidneys without suspicious focal lesion or hydronephrosis. Tiny nonobstructing stone again noted in mid pole of left kidney. Abdominal aorta normal in caliber. No retroperitoneal adenopathy. Abdominal portions of GI tract within normal limits. No free fluid or free air. There is been a prior ventral hernia repair on the right. No ventral hernia evident currently. Pelvic Findings: Urinary bladder and distal ureters unremarkable free of stones. Uterus within normal limits. Pelvic portions of GI tract within normal limits. No free fluid or suspicious focal pelvic mass. Bone windows show no suspicious lytic or blastic lesions in the abdomen or pelvis. Procedure Note Remberto Delacruz MD - 03/20/2020 CT ABDOMEN AND PELVIS WITH AND WITHOUT CONTRAST Indication: Nausea. Unspecified abdominal pain. Technique: Multiple axial CT images are obtained of the abdomen andpelvis both prior to and following administration of 100 cc of [id number] intravenous contrast agent. Oral contrast was utilized. Comparison: 12/11/2010. Abdominal Findings: Lung bases are clear with exception of a benigncalcified granuloma on the left. There is a small stable benign cyst inthe subcapsular aspect of the periphery of the right lobe of liver onaxial image 37. Postcholecystectomy changes are noted. No suspicious focal hepatic lesion. Spleen, pancreas andadrenals unremarkable. Kidneys without suspicious focal lesion orhydronephrosis. Tiny nonobstructing stone again noted in mid pole of leftkidney. Abdominal aorta normal in caliber. No retroperitoneal adenopathy.Abdominal portions of GI tract within normal limits. No free fluid or freeair. There is been a prior ventral hernia repair on the right. No ventralhernia evident currently. Pelvic Findings: Urinary bladder and distal ureters unremarkable free ofstones. Uterus within normal limits. Pelvic portions of GI tract withinnormal limits. No free fluid or suspicious focal pelvic mass. Bone windows show no suspicious lytic or blastic lesions in the abdomen orpelvis. IMPRESSION: No acute intra-abdominal or pelvic process. [id number] us Juan A Gomez MD IMG CT ORDERABLES Final Resu lt documented in this encounter Visit Diagnoses Diagnosis Nausea- Primary Nausea alone Unspecified abdominal pain Nausea Nausea alone Unspecified abdominal pain documented in this encounter Additional Health Concerns Infection Onset Date Last Indicated Resolved Time COVID - 19 Rule Out 04/11/2020 04/11/2020 04/12/19 21 3:29 PM STILL CLEANER TUBE COVID - 19 Confirmed 04/11/2020 04/11/2020 021 12:24 AM STILL CLEANER TUBE documented as of this encounter Care Teams Security Incident Handler Relationship Specialty Start Date End Date Juan A Gomez MD [facility] [place] [address] PCP - General Family Medicine 02/20/11 Prosper Cutler MD [address] [place] [address] Otolaryngology 07/10/15 Rupert Byers MD [address] [place] [address] Obstetrics & Gynecology Gynecology 02/06/16 Ines Villar MD [address] [place] [phone] Internal Medicine - Cardiovascular Disease 11/17/17 Opal Henderson MD [address] [place] [phone] Cardiology 11/29/17 06/17/22 documented as of [...] person's specific written consent to the redisclosure. [id number].[facility]
--- OUTSIDE RECORDS SUMMARY | 2025-01-01 21:51 | XMS_ITS | Encounter Summary ---
Author Organization [facility] Address [address] [place] [address] Care Team Providers Care Hot Tamale Worker Name Role Phone Juan A Gomez MD Primary Care Provider [phone] Prosper Cutler MD Unavailable Rupert Byers MD Unavailable [phone] Ines Villar MD Unavailable [phone] Opal Henderson MD Unavailable Encounter Details Date Type Department Care Team (Latest Contact Info) Description 04/18/2018 Transcribe Orders Central Scheduling [address] [place] [address] Rupert Byers MD [address] [phone] Encounter for screening mammogram for malignant neoplasm [...] on file Legal Sex Female 1:32 AM STOCK CLIPPER Gender Identity Not on file Sexual Orientation Not on file Occupation Industry Job Start Date Job End Date Not on file Not on file Not on file Not on file documented as of this encounter Plan of Treatment Not on file documented as of this encounter Results * Mammography screening digital bilateral w/ CAD (04/22/2018 2:33 PM STOCK CLIPPER) Anatomical Region Laterality Modality Breast Bilateral Mammography 04/22/2018 2:52 PM STOCK CLIPPER Impressions 04/22/2018 2:54 PM STOCK CLIPPER Benign findings BI-RADS 2 Recommendation: Next mammogram in one year. [id number] Narrative 04/22/2018 2:54 PM STOCK CLIPPER SCREENING DIGITAL 2D BILATERAL MAMMOGRAPHY Indication: Routine screening. Comparison: 04/15/2017, 02/21/2016, 02/18/2015 Breast Composition:. There are scattered fibroglandular densities.. Technique: The exam was done with digital 2D technique and was reviewed with computer-aided detection (CAD). Findings: There are no suspicious nodules, suspicious clusters of microcalcifications, or areas of architectural distortion to suggest malignancy. No significant change from the prior exams. Rupert Byesr MD IMG MAMMOGRAPHY ORDERABLES Fin al Result [...] Out 04/11/2020 04/11/2020 04/12/19 21 3:29 PM STOCK CLIPPER COVID - 19 Confirmed 04/11/2020 04/11/2020 021 12:24 AM STOCK CLIPPER documented as of this encounter Care Teams Hot Tamale Worker Relationship Specialty Start Date End Date Juan A Gomez MD [address] [facility] [place] [address] PCP - General Family Medicine 02/20/11 Prosper Cutler MD [address] [place] [address] Otolaryngology 07/10/15 Rupert Byers MD [address] [address] Obstetrics & Gynecology Gynecology 02/06/16 Ines Villar MD [address] [place] [phone] Internal Medicine - Cardiovascular Disease 11/17/17 Opal Henderson MD [address] [place] [phone] Cardiology 11/29/17 06/17/22 documented as of [...] person's specific written consent to the redisclosure. [id number].[facility]
--- OUTSIDE RECORDS SUMMARY | 2025-01-01 21:51 | XMS_ITS | Encounter Summary ---
Author Organization [facility] Address [address] [place] [address] Care Team Providers Care School Guard Name Role Phone Juan A Gomez MD Primary Care Provider [phone] Zac Justin MD Unavailable Prosper Cutler MD Unavailable [phone] Shaun Jose Carloslars BADILLO Unavailable Rupert Byers MD Unavailable [phone] Ines Villar MD Unavailable [phone] Opal Henderson MD Unavailable Encounter Details Date Type Department Care Team (Latest Contact Info) Description 01/31/2015 Transcribe Orders Central Scheduling [address] [place] [address] Rupert Byers MD [address] [phone] Encounter for screening mammogram for malignant neoplasm [...] on file Legal Sex Female 1:32 AM SCIENTIST/ENGINEER Gender Identity Not on file Sexual Orientation Not on file Occupation Industry Job Start Date Job End Date Not on file Not on file Not on file Not on file documented as of this encounter Plan of Treatment Not on file documented as of this encounter Results * Mammography screening digital bilateral w/ CAD (02/18/2015 2:39 PM SCIENTIST/ENGINEER) Anatomical Region Laterality Modality Breast Bilateral Mammography 02/18/2015 2:41 PM SCIENTIST/ENGINEER Impressions 02/18/2015 2:43 PM SCIENTIST/ENGINEER Benign findings (BI-RADS 2). Recommendation: Normal return date in one year unless otherwise clinically indicated. Narrative 02/18/2015 2:43 PM SCIENTIST/ENGINEER SCREENING DIGITAL BILATERAL MAMMOGRAPHY WITH DIGITAL BREAST TOMOSYNTHESIS (3D) Indication: Screening. Comparison: 02/15/2014, 11/29/2012, 11/27/2008. Breast Composition: There are scattered fibroglandular densities. Technique: The exam was done with digital mammography and tomosynthesis and was reviewed with computer-aided detection (CAD). Findings: No dominant or spiculated mass is seen in either breast. No suspicious clustered microcalcifications or architectural distortion is identified. The glandular pattern is stable. There has been no suspicious change. us Rupert Byers MD IMG MAMMOGRAPHY ORDERABLES Fin [...] Out 04/11/2020 04/11/2020 04/12/19 21 3:29 PM SCIENTIST/ENGINEER COVID - 19 Confirmed 04/11/2020 04/11/2020 021 12:24 AM SCIENTIST/ENGINEER documented as of this encounter Care Teams School Guard Relationship Specialty Start Date End Date Juan A Gomez MD [address] [place] [address] PCP - General Family Medicine 02/20/11 Zac Justin MD [address] [place] [address] Cardiology 06/29/13 11/16/17 Prosper Cutler MD [address] [place] [address] Otolaryngology 07/10/15 Jose Carlos Dunn DO [facility] [place] [address] Consulting Physician Cardiology 02/06/16 11/16/17 Rupert Byers MD [address] [place] [address] Obstetrics & Gynecology Gynecology 02/06/16 Ines Villar MD [address] [place] [phone] Internal Medicine - Cardiovascular Disease 11/17/17 Opal Henderson MD [address] [place] [phone] Cardiology 11/29/17 06/17/22 documented as of [...] person's specific written consent to the redisclosure. [id number].[facility]
--- OUTSIDE RECORDS SUMMARY | 2025-01-01 21:51 | XMS_ITS | Patient Health Record ---
Author Organization [facility] Practice Address [address] [place] [phone] Care Team Providers Care Grassroots Organizer Name Role Phone JUAN A NIX Primary Care Provider Allergies Allergen (clinical drug ingredient) Drug/Non Drug Allergy documented on EMR Reaction Allergy Type Onset Date Status Substance with 0-uepxdcz-3-methylglutar yl-coenzyme A reductase inhibitor mechanism of action (substance) statin (uncoded) myalgia Allergy 05/19/2017 Activ e atorvastatin Lipitor unknown Drug Allergy 06/19/2014 Act abril codeine codeine unknown Drug Allergy 06/19/2014 Active penicillin unknown Drug Allergy 03/04/2016 Activ e Results Component Value Reference Range Notes Comp. Metabolic Panel [id number] Reviewed date:03/23/2024 10:15:20 AM Interpretation: Performing Lab: Notes/Report: Test performed by [facility] [address] [place] [address] , [address], [place] [address] Lefty De Leon MD, Slot Machine Mechanic CLIA: [id number] Sodium 140 135-145 mmol/L Potassium 4.5 3.5-5.3 mmol/L Chloride 102 97-108 mmol/L CO2 27 22-32 mmol/L Glucose 127 65-99 mg/dL BUN 19 8-23 mg/dL Creatinine 1.03 0.50-1.00 mg/dL Calcium 10.1 8.6-10.4 mg/dL eGFR by Creatinine 60 >59 mL/min/1.73m2 Protein 6.8 6.0-8.3 g/dL Albumin 4.0 3.5-5.3 g/dL Alkaline Phosphatase 75 35-121 IU/L ALT (SGPT) 22 <5-47 IU/L AST (SGOT) 26 <5-40 IU/L Bilirubin, Total 0.3 <0.2-1.2 mg/dL A/G Ratio 1.4 1.1-2.5 Lipid Panel-[id number] Reviewed date:03/23/2024 10:15:20 AM Interpretation: Performing Lab: Notes/Report: Test performed by [facility], [address] , [address], [place] [address] Lefty De Leon MD, Slot Machine Mechanic CLIA: [id number] Cholesterol 246 <200 mg/dL Triglycerides 276 <150 mg/dL HDL Cholesterol 59 >39 mg/dL Cholesterol / HDL Ratio 4.17 0.00-4.44 Ratio Non-HDL Cholesterol 187 <130 mg/dL LDL Cholesterol (Calculation) 132 <130 mg/dL LDL Cholesterol Levels* Less than 100 mg/dL Optimal 100 to 129 mg/dL Near Optimal/ Above Optimal 130 to 159 mg/dL Borderline High 160 to 189 mg/dL High 190 mg/dL and above Very High * Categories as recommended by the 2004 ATPIII guidelines LDL/HDL Ratio 2.2 <3.3 Ratio LDL Cholesterol Patient History Test Date: 03/09/2023 LDL Results: 124 Units: mg/dL % Change: -9% Test Date: 09/21/2023 LDL Results: 114 Units: mg/dL % Change: -8% Test Date: 03/22/2024 LDL Results: 132 Units: mg/dL % Change: +15% CBC With Differential/Platel et-[id number] Reviewed date:03/23/2024 10:15:20 AM Interpretation: Performing Lab: Notes/Report: Test performed by [facility], [address] , [place] [address] Lefty De Leon MD, Slot Machine Mechanic CLIA: [id number] WBC 8.1 3.8-11.5 K/uL Red Blood Cell Count (RBC) 3.90 3.60-5.30 M/mm 3 Hemoglobin (Hgb) 11.7 11.5-15.5 gm/dL Hematocrit (HCT) 36.7 35.2-46.4 % MCV 94.1 79.0-99.0 fL MCH 30.0 26.9-35.0 pg MCHC 31.9 30.4-34.8 g/dL RDW 42.4 38.6-53.8 fL Platelet Count 230 137-397 K/cumm Neutrophils Automated 60.9 41.0-77.0 % Lymphocytes Automated 27.8 14.0-48.0 % Monocytes Automated 7.4 4.0-13.0 % Eosinophils Automated 3.0 0.0-8.0 % Basophils Automated 0.7 0.0-1.5 % Immature Granulocyte Automated 0.2 0.0-1.0 % Urinalysis, Complete-[id number] Reviewed date:03/23/2024 10:15:20 AM Interpretation: Performing Lab: Notes/Report: Test performed by [facility] [address] [place] [address] [address] Lamas C, [place] [address] Lefty De Leon MD, Slot Machine Mechanic CLIA: [id number] Urine Type Voided Urine Color Yellow Yellow Urine Appearance Cloudy Clear Urine Specific [place] 1.018 1.005-1.030 Urine pH 7.5 5.0-9.0 Urine Leukocytes Esterase Negative Negative Urine Nitrites Negative Negative Urine Protein Trace Negative Urine Glucose Negative Negative Urine Ketones Negative Negative Urine Urobilinogen 0.2 0.2-1.0 E.U./dL Urine Bilirubin Negative Negative Urine Blood Negative Negative Hemoglobin [id number] Reviewed date:03/23/2024 10:15:20 AM Interpretation: Performing Lab: Notes/Report: Test performed by [facility] [address] [place] [address] [place] [address] Lefty De Leon MD, Slot Machine Mechanic CLIA: [id number] Hemoglobin A1C 6.6 <5.7 % The following HbA1c ranges recommended by the [place] [employer] (ADA) may be used as an aid in the diagnosis of diabetes mellitus. HbA1c Suggested Diagnosis >=6.5% Diabetic 5.7% - 6.4% Pre-Diabetic <5.7% Non-Diabetic Estimated Average Glucose (eAG) 143 Estimated Average Glucose (eAG) is calculated using the equation eAG = (28.7 x HbA1c) - 46.7 based on the guidelines established by the ADA. If the patient has certain diseases including kidney disease, sickle cell anemia, thalassemia, or is taking medications such as dapsone, erythropoietin, or iron, eAG should not be evaluated. Urinalysis, Routine-[id number] Reviewed date:03/23/2024 10:15:20 AM Interpretation: Performing Lab: Notes/Report: Test performed by [facility] [address] [place] [address] [place] [address] Lefty De Leon MD, Slot Machine Mechanic CLIA: [id number] Urine WBC 0-5 0-5 /HPF Urine RBC 0-2 0-2 /HPF Urine Epithelial Cells 3-5 0-2 /HPF Urine Bacteria None Seen None Seen /HPF Urine Casts 0-2 Hyaline 0-2 /LPF Comp. Metabolic Panel [id number] Reviewed date:09/22/2024 08:34:26 AM Interpretation: Performing Lab:[facility] [address] [id number], Phone - [phone], Director - Yadi Notes/Report: Glucose 113 70-99 mg/dL BUN 21 8-27 mg/dL Creatinine 1.09 0.57-1.00 mg/dL eGFR 56 >59 mL/min/1.73 BUN/Creatinine Ratio 19 12-28 Sodium 141 134-144 mmol/L Potassium 4.2 3.5-5.2 mmol/L Chloride 101 96-106 mmol/L Carbon Dioxide, Total 25 20-29 mmol/L Calcium 10.2 8.7-10.3 mg/dL Protein, Total 6.5 6.0-8.5 g/dL Albumin 4.4 3.9-4.9 g/dL Globulin, Total 2.1 1.5-4.5 g/dL Bilirubin, Total 0.5 0.0-1.2 mg/dL Alkaline Phosphatase 75 44-121 IU/L AST (SGOT) 28 0-40 IU/L ALT (SGPT) 20 0-32 IU/L Lipid Panel-[id number] Reviewed date:09/22/2024 08:34:26 AM Interpretation: Performing Lab:[facility] [address] [id number], Phone - [phone], Director - [facility] Notes/Report: Cholesterol, Total 225 100-199 mg/dL Triglycerides 149 0-149 mg/dL HDL Cholesterol 65 >39 mg/dL VLDL Cholesterol Feroz 26 5-40 mg/dL LDL Chol Calc (NIH) 134 0-99 mg/dL CBC With Differential/Platel et-[id number] Reviewed date:09/22/2024 08:34:26 AM Interpretation: Performing Lab:[facility] [place], [address] [place] [id number], Phone - [phone], Director - Yadi Notes/Report: WBC 7.1 3.4-10.8 x10E3/uL RBC 4.04 3.77-5.28 x10E6/uL Hemoglobin 12.2 11.1-15.9 g/dL Hematocrit 37.4 34.0-46.6 % MCV 93 79-97 fL MCH 30.2 26.6-33.0 pg MCHC 32.6 31.5-35.7 g/dL RDW 12.6 11.7-15.4 % Platelets 258 150-450 x10E3/uL Neutrophils 51 Not Estab. % Lymphs 38 Not Estab. % Monocytes 8 Not Estab. % Eos 2 Not Estab. % Basos 1 Not Estab. % Neutrophils (Absolute) 3.7 1.4-7.0 x10E3/uL Lymphs (Absolute) 2.7 0.7-3.1 x10E3/uL Monocytes(Absolute) 0.6 0.1-0.9 x10E3/uL Eos (Absolute) 0.1 0.0-0.4 x10E3/uL Baso (Absolute) 0.1 0.0-0.2 x10E3/uL Immature Granulocytes 0 Not Estab. % Immature Grans (Abs) 0.0 0.0-0.1 x10E3/uL Urinalysis, Complete-[id number] Reviewed date:09/22/2024 08:34:26 AM Interpretation: Performing Lab:[facility] [place], [address] [place] [id number], Phone - [phone], Director - [facility] Notes/Report: Specific [place] 1.019 1.005-1.030 pH 7.0 5.0-7.5 Urine-Color Yellow Yellow Appearance Clear Clear WBC Esterase Negative Negative Protein Negative Negative/Trace Glucose Negative Negative Ketones Negative Negative Occult Blood Negative Negative Bilirubin Negative Negative Urobilinogen,Semi-Qn 0.2 0.2-1.0 mg/dL Nitrite, Urine Negative Negative Microscopic Examination Micr oscopic follows if indicated. Microscopic Examination See below: Micr oscopic was indicated and was performed. WBC None seen 0 - 5 /hpf RBC None seen 0 - 2 /hpf Epithelial Cells (non renal) 0-10 0 - 10 /hpf Casts None seen None seen /lpf Bacteria None seen None seen/Few Hemoglobin [id number] Reviewed date:09/22/2024 08:34:26 AM Interpretation: Performing Lab:[facility] [place], [address], [place] [id number], Phone - [phone], Director - [facility] Notes/Report: Hemoglobin A1c 6.3 4.8-5.6 % . Prediabetes: 5.7 - 6.4 Diabetes: >6.4 Glycemic control for adults with diabetes: <7.0 Reason For Referral No Information Medications Medication SIG (Take, Route, Frequency, Duration) Notes Start Date End Date Status Xanax 0.25 MG 1-2 tablets Orally once a day as needed; Duration: 1 days 06/10/2022 Active Ondansetron HCl 4 MG 1 tablet Orally thr ee times a day as needed; Duration: 7 days 06/02/2022 Not-Taking traZODone HCl 100 MG TAKE 1 TABLET BY MO UTH AT BEDTIME FOR SLEEP; Duration: 90 days Active ALPRAZolam 0.25 MG 1 tablet Orally once a day as needed; Duration: 30 days 09/02/2022 Not-Taking Ondansetron HCl 4 MG 1 tablet Orally Thr ee times daily; Duration: 7 days 06/09/2023 Not-Taking Benadryl Allergy 25 MG 1 Tablet PO once a day (at bedtime) Oral 02/06/2016 Active Magnesium Oxide 400 MG TAKE 2 TABLETS BY MOUTH TWICE A DAY orally twice daily; Duration: 90 days Active glipiZIDE 10 MG TAKE 1 TABLET BY SOLE TH TWICE A DAY; Duration: 90 Active Flonase Allergy Relief Flonase Allergy Relief 2 [place] MARCUS once a day Suspension 02/06/2016 Active Albuterol Sulfate HFA 108 (90 Base) MCG/ACT INHALE 2 PUFFS EVERY 6 HOURS 30 DAYS; Duration: 30 Active Pioglitazone HCl 30 MG TAKE 1 TABLET BY MOUTH EVERY DAY; Duration: 90 Active Metoprolol Succinate ER 100 MG TAKE 1 TABLET BY MOUTH EVERY DAY; Duration: 90 Active Blood Glucose Test - FSBS In Vitro once daily; Duration: 30 days 09/02/2021 Active Lisinopril 5 MG TAKE 1 TABLET BY SOLE TH EVERY DAY; Duration: 90 Active Blood Glucose Monitor System w/Device FSBS invitro once daily; Duration: 30 days 09/02/2021 Active Montelukast Sodium 10 MG TAKE 1 TABLET B Y MOUTH EVERY DAY; Duration: 90 Active metFORMIN HCl 1000 MG TAKE 1 TABLET BY M OUTH TWICE A DAY; Duration: 90 Active Ibuprofen 800 MG TAKE 1 TABLET BY SOLE TH THREE TIMES A DAY; Duration: 90 Active Immunizations Vaccine Route Administration Date Status Comme nts Influenza (split), 3 yrs and above Unknown 05/19/2017 Administered Perform Date: *,Comm ent: Flu Vaccine 3 years and up [facility] Influenza (split), 3 yrs and above Unknown 03/01/2018 Administered Perform Date: *,Comm ent: Flu Vaccine 3 years and up Influenza (split), 3 yrs and above Unknown 06/21/2019 Administered Perform Date: 2019-02-01*,Comm ent: Flu Vaccine 3 years and up Influenza, seasonal, injectable, preservative free, 6-35 months Unknown 12/19/2015 Administered Perform Date: 2015-12-19*,Comm ent: Pneumovax Influenza, high dose seasonal IM Intramuscular 03/09/2023 Administered INFLUENZA VACCINE IM Intramuscular 02/21/2020 Administered INFLUENZA VACCINE IM Intramuscular 02/24/2021 Administered INFLUENZA VACCINE IM Intramuscular 02/24/2022 Administered Fluzone High Dose (vaxcare) IM Intramuscular 02/23/2024 Administered Fluzone High Dose (vaxcare) Unknown 12/12/2024 Administered COVID PFIZER IM Intramuscular 04/01/2021 Administered COVID PFIZER IM Intramuscular 06/02/2021 Administered Social History Tobacco Use: Social History Observation Description Date Details (start date - stop date) Former Smoker 09/06/1974 - 09/12/2014 Sex Assigned At : Social History Observation Description Sex Assigned At Female Household Question Answer Notes Marital status: Number of adults in household: 2 Number of children in household: 0 Tobacco Use/Smoking Question Answer Notes Tobacco use: former smoker When did you start smoking? 08/08/1974 When did you stop smoking? 08/09/1989 How long has it been since you last smoked? > 10 years Tobacco Control (Standard) Question Answer Notes Tobacco use: Former smoker When did you start smoking? 09/06/1974 When did you stop smoking? 09/12/2014 How long has it been since you last smoked? Grea ter than 10 years Problems Problem Type SNOMED Code ICD Code Onset Dates Problem Status W/U Status Risk Notes Problem Sedative, hypnotic or anxiolytic dependence, uncomplicated (F13.20) Active confirmed Problem Myopathy (327698883) Myopathy, unspecified (G72.9) Active confirmed Problem Atherosclerosis of aorta (81994059) Atherosclerosis of aorta (I70.0) Active confirmed Problem Chronic obstructive pulmonary disease (19159664) Chronic obstructive pulmonary disease, unspecified (J44.9) Active confirmed Problem Age-related osteoporosis (761726438) Age-related osteoporosis without current pathological fracture (M81.0) Active confirmed Problem Age-related osteoporosis (641688230) Age-related osteoporosis w/o current pathological fracture (M81.0) Active confirmed Problem Solitary nodule of lung (528326796) Lung nodule (R91.1) Active confirmed Problem Type 2 diabetes mellitus with other specified complication (E11.69) 019 Active confirmed Problem Hypomagnesemia (667216164) Hypomagnesemia (E83.42) 016 Active confirmed Problem Essential hypertensi on (11596009) Essential (primary) hypertension (I10) 016 Active confirmed Problem Mild intermittent asthma (178690978) Mild intermittent asthma, uncomplicated (J45.20) 018 Active confirmed Problem Pure hypercholesterolemia (657433036) Pure hypercholesterole jeffrey, unspecified (E78.00) 018 Active confirmed Problem Adult health examination (870349098) Encntr for general adult medical exam w/o abnormal findings (Z00.00) 016 Active confirmed Vital Signs Heart Rate 66 /min 03/22/2024 Oximetry 99 % 03/22/2024 Blood pressure diastolic 76 mm Hg 09/21/2024 Height 65.000 in 09/21/2024 Blood pressure systolic 124 mm Hg 09/21/2024 Weight 192 lbs 09/21/2024 BMI 31.95 kg/m2 09/21/2024 Encounters Encounter Location Date Provider Diagnosis Juan A Nix [address] [address] 03/22/2024 JUAN A NIX Type 2 diabetes mellitus with other specified complication E11.69 ; Essential (primary) hypertension I10 and Pure hypercholesterolemia, unspecified E78.00 Juan A Nix [address] [address] 03/22/2024 JUAN A Nix [address] [address] 09/21/2024 JUAN A NIX Type 2 diabetes mellitus with other specified complication E11.69 ; Essential (primary) hypertension I10 ; Pure hypercholesterolemia, unspecified E78.00 ; Sedative, hypnotic or anxiolytic dependence, uncomplicated F13.20 ; Atherosclerosis of aorta I70.0 ; Chronic obstructive pulmonary disease, unspecified J44.9 and Myopathy, unspecified G72.9 Juan A Nix [address] [address] 02/29/2024 JUAN A Nix [address] [address] 05/16/2024 JUAN A Nix [address] [address] 06/16/2024 JUAN A NIX Assessments Encounter Date Diagnosis (ICD Code) Assessment Notes Treatment Notes Treatment Clinical Notes Section Notes 03/22/2024 Type 2 diabetes mellitus with other specified complication (ICD-10 - E11.69) 09/21/2024 Type 2 diabetes mellitus with other specified complication (ICD-10 - E11.69) 09/21/2024 Essential (primary) hypertension (ICD-10 - I10) 03/22/2024 Essential (primary) hypertension (ICD-10 - I10) 03/22/2024 Pure hypercholesterolemi a, unspecified (ICD-10 - E78.00) 09/21/2024 Pure hypercholesterolemi a, unspecified (ICD-10 - E78.00) 09/21/2024 Sedative, hypnotic or anxiolytic dependence, uncomplicated (ICD-10 - F13.20) 09/21/2024 Atherosclerosis of aorta (ICD-10 - I70.0) 09/21/2024 Chronic obstructive pulmonary disease, unspecified (ICD-10 - J44.9) 09/21/2024 Myopathy, unspecified (ICD-10 - G72.9) 03/22/2024 Other Patient remains stable and has controlled diabetes mellitus according to ADA guidelines. Exercise instructions are reviewed. Regular foot inspection is recommended. Blood sugar readings are reviewed with a goal of having their fasting blood glucose less than 120mg/dl and their nonfasting blood glucose less than 140mg/dl 2 hours postprandial. annual eye exam is recommended. Refills of medications are prescribed. A follow up appointment is made. Compliance with therapy is reviewed . Labs are ordered. Medication side effects are reviewed. The patient's medical history most recent lab data medications have been reviewed and considered in developing their treatment plan. Prescription have been written and/or electronically sent. Compliance with their medications diet exercise and the prescribed therapy for their medical condition/s is reviewed. A follow up appointment has been made with the provider. 09/21/2024 Other Patient remains stable and has controlled diabetes mellitus according to ADA guidelines. Exercise instructions are reviewed. Regular foot inspection is recommended. Blood sugar readings are reviewed with a goal of having their fasting blood glucose less than 120mg/dl and their nonfasting blood glucose less than 140mg/dl 2 hours postprandial. annual eye exam is recommended. Refills of medications are prescribed. A follow up appointment is made. Compliance with therapy is reviewed . Labs are ordered. Medication side effects are reviewed. The patient's medical history most recent lab data medications have been reviewed and considered in developing their treatment plan. Prescription have been written and/or electronically sent. Compliance with their medications diet exercise and the prescribed therapy for their medical condition/s is reviewed. A follow up appointment has been made with the provider. Plan Of Treatment Pending Test Test Name Order Date CT Scan : Chest 06/29/2023 DEXA 03/22/2024 DEXA 09/21/2024 MAMMOGRAM, SCREENING 09/21/2024 Future Test Test Name Order Date Hemoglobin [id number] 09/21/2024 Urinalysis, Complete-[id number] 09/21/2024 CBC With Differential/Platelet-[id number] Lipid Panel-[id number] 09/21/2024 Comp. Metabolic Panel [id number] 2024 Next Appt Details Provider Name:JUAN A YUEN, 03/26/2025 10:15:00 AM, [address] [place], [address], Provider Name:JUAN A YUEN, 03/26/2025 10:15:00 AM, [address] [place], [address], Insurance Providers Payer Name Payer Address Payer Phone Subscriber Number Group Number Insured Name Patient Relationship to Insured Coverage Start Date Coverage End [place] [place] [address] [id number] GRETA QUEZADA Self - patient is the insured 3 Medical (General) History Medical History History ICD Code Problems: ICD Code:E11.22Des cription:Type 2 diabetes mellitus w diabetic chronic kidney diseaseICD Type:10 ICD Code:E11.65Description:T YPE 2 DIABETES MELLITUS WITH HYPERGLYCEMIAICD Type:10 ICD Code:E11.69Description:T ype 2 diabetes mellitus with other specified complicationICD Type:10 ICD Code:E66.09Description:Other obesity due to excess caloriesICD Type:10 ICD Code:E78.00Description:Pure hypercho lesterolemia, unspecifiedICD Type:10 ICD Code:E83.42Description:Hypomagnesemi aICD Type:10 ICD Code:G47.30Description:Sleep apnea, unspecifiedICD Type:10 ICD Code:H61.23Description:Impacted ceru men, bilateralICD Type:10 ICD Code:H65.2Description:Chronic serous otitis mediaICD Type:10 ICD Code:H66.0Description:Acute suppurat abril otitis mediaICD Type:10 ICD Code:J72Dmurbevminb:ESSENTIAL (PRIMA RY) HYPERTENSIONICD Type:10 ICD Code:I49.1Description:Atrial prematu re depolarizationICD Type:10 ICD Code:J31.0Description:Chronic rhinit isICD Type:10 ICD Code:J45.20Description:M ild intermittent asthma, uncomplicatedICD Type:10 ICD Code:M79.10Description:MYALGIA, UNSP ECIFIED SITEICD Type:10 ICD Code:N18.1Description:Chronic kidney disease, stage 1ICD Type:10 ICD Code:R06.02Description:Shortness of breathICD Type:10 ICD Code:Z82Nmevkdvivwu:Dizziness and gi ddinessICD Type:10 ICD Code:Z00.00Description:E NCNTR FOR GENERAL ADULT MEDICAL EXAM W/O ABNORMAL FINDINGSICD Type:10 ICD Code:Z79.84Description:L vish term (current) use of oral hypoglycemic drugsICD Type:10 Surgical History Surgery Date(Month/Year) Colonoscopy 1 polyp benign next in 5 yrs . 10-20 cholecystectomy
--- OUTSIDE RECORDS SUMMARY | 2025-01-01 21:51 | XMS_ITS | Encounter Summary ---
Author Organization [facility] Address [address] [place] [address] Care Team Providers Care Industrial Garage Servicer Name Role Phone Juan A Gomez MD Primary Care Provider [phone] Prosper Cutler MD Unavailable Rupert Byers MD Unavailable [phone] Ines Villar MD Unavailable [phone] Encounter Details Date Type Department Care Team (Latest Contact Info) Description 08/19/2023 Transcribe Orders Central Scheduling [address] [place] [address] Rupert Byers MD [address] [phone] Encounter for screening mammogram for malignant neoplasm of breast (Primary Dx) Social History Tobacco Use Types Packs/Day Years Used Date Smoking Tobacco: Former Cigarettes 2 17 0 11/20/1972 - 11/20/1989 Smokeless Tobacco: Never Alcohol Use Standard Drinks/Week Comments Yes 0 (1 standard drink = 0.6 oz pur e alcohol) rarely [place] Housing Stability Vital Sign Answer Date Recorded What is your living situation today? Not on file 04/02/[address] you li ve. Do you have problems with any of the following? 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 Recommendation: Next mammogram in 12 months. [id number] Narrative 10/05/2023 10:38 AM CDT SCREENING DIGITAL BILATERAL MAMMOGRAPHY WITH BREAST TOMOSYNTHESIS (2D/3D) Indication: Screening. Estimated lifetime risk of breast cancer is 6 percent using the Anel model, which suggests average risk. Comparison: 08/19/2022, 06/11/2021. Breast Composition: There are scattered fibroglandular densities. Technique: The exam was done with Hologic digital mammography (2D), plus tomography (3D), and was reviewed with computer-aided detection (CAD). Findings: No mass or calcification is demonstrated. There has been no suspicious change. us Rupert Byers MD IMG MAMMOGRAPHY ORDERABLES Fin al Result documented in this encounter Visit Diagnoses Diagnosis Encounter for screening mammogram for malignant neoplasm of breast- Primary Other screening mammogram Encounter for screening mammogram for malignant neoplasm of breast Other screening mammogram documented in this encounter Care Teams Industrial Garage Servicer Relationship Specialty Start Date End Date Juan A Gomez MD [address] [facility] [place] [address] PCP - General Family Medicine 02/20/11 Prosper Cutler MD [address] [place] [address] Otolaryngology 07/10/15 Rupert Byers MD [address] [place] [address] Obstetrics & Gynecology Gynecology 02/06/16 Ines Villar MD [address] [place] [phone] Internal Medicine - Cardiovascular Disease 11/17/17 documented as of this encounter Additional Source [...] person's specific written consent to the redisclosure. [id number]
--- OUTSIDE RECORDS SUMMARY | 2025-01-01 21:51 | XMS_ITS | Clinical Summary ---
Author Organization [facility] Address [address] [place] [address] Care Team Providers Care Ep Tech Name Role Phone Juan A Gomez MD Primary Care Provider [phone] Prosper Cutler MD Unavailable [phone] Rupert Byers MD Unavailable [phone] Ines Villar MD Unavailable [phone] Allergies Active Allergy Reactions Criticality Noted Date Comments Codeine Sulfate Hives,Itching,Nausea And Vomiting 02/20/2011 Penicillins Unknown 02/20/2011 Medications diphenhydrAMINE (BENADRYL) 25 mg capsule Take 25 mg by mouth nightly as needed. Active ibuprofen (ADVIL,MOTRIN) 800 MG tablet Take 800 mg by mouth every 6 (six) hours as needed. Active magnesium oxide (MAG-OX) 400 mg tablet 800 mg by mouth 2 (two) times daily Active fluticasone (FLONASE) 50 mcg/actuation nasal spray 2 sprays by Nasal route 2 (two) times daily as needed for Rhinitis or Allergies. Active lisinopril (PRINIVIL,ZESTR IL) 5 MG tablet Take 5 mg by mouth nightly. Active lysine (L-LYSINE) 500 mg Tab Take 500 mg by mouth 2 (two) times daily. Active montelukast (SINGULAIR) 10 mg tablet 10 mg by mouth nightly 8 Active tiotropium bromide (SPIRIVA RESPIMAT) 2.5 mcg/actuation inhaler 2 puffs into the lungs daily 4 g 11 8 Active sitagliptan-met formin (JANUMET) 50-1,000 mg per tablet 1 tablet by mouth 2 (two) times daily with meals Active glipiZIDE (GLUCOTROL) 5 MG tablet 5 mg by mouth daily Active metoprolol (TOPROL-XL) 100 MG 24 hr tablet TAKE 1 TABLET BY MOUTH EVERY DAY 30 tablet 6 9 Active Additional Information Patient not taking.Reported on 09/17/2019 metFORMIN (GLUCOPHAGE) 1000 MG tablet 0 Active traZODone (DESYREL) 50 MG tablet TAKE 1 TABLET BY MOUTH AT BEDTIME FOR SLEEP 0 Active Active Problems Problem Noted Date Diagnosed Date Ventricular ectopic complex 02/06/2016 Essential hypertension with goal blood pressure less than 130/80 10/15/2015 Obstructive sleep apnea syndrome in adult 2015 Palpitations 06/29/2013 HTN (hypertension) 06/29/2013 MILLARD (dyspnea on exertion) 06/14/2013 PAC (premature atrial contraction) 06/14/2013 Hypomagnesemia 06/14/2013 Obesity, unspecified 02/01/2008 Unspecified asthma(493.90) 02/01/2008 Overview (07/07/2021): IMO July 2021 Chronic rhinitis 02/01/2008 Resolved Problems Problem Noted Date Diagnosed Date Resolved Date Abnormal nuclear cardiac imaging test 02/06/2016 03/02/2016 GLENDA on CPAP 06/06/2014 05/11/2016 Chest pain 06/14/2013 03/02/2016 Immunizations Immunization Administration Dates Next Due Influenza Whole 03/16/2017, 5,02/06/2014,2013,02/08/2012,02/06/2011 Influenza, Injectable, Quadr ivalent, Preservative Free 02/04/2018 Tetanus 06/28/1996 Family History Medical History Relation Comments Cancer Brother Cancer Father Cancer Maternal Aunt Cancer Maternal Grandfather Cancer Maternal Grandmother Heart attack Maternal Uncle Cancer Mother Diabetes Mother Cancer Paternal Aunt Cancer Paternal Grandfather Cancer Paternal Grandmother Cancer Sister Anesth problems Neg Hx Malig hypertherm Neg Hx Muscular dystrophy Neg Hx Pseudochol deficiency Neg Hx Relation Status Comments Brother Father Maternal Aunt Maternal Grandfather Maternal Grandmother Maternal Uncle Mother Paternal Aunt Paternal Grandfather Paternal Grandmother Sister Social History Tobacco Use Types Packs/Day Years [...] on file 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 Gender Identity Not on file Sexual Orientation Not on file Occupation Industry Job Start Date Job End Date Not on file Not on file Not on file Not on file Last Filed Vital Signs Vital Sign Reading Time Taken Comments Blood Pressure 123/48 02/29/2024 6:00 PM HYDRAULICS ENGINEER Pulse 63 02/29/2024 6:00 PM HYDRAULICS ENGINEER Temperature 37.1 C (98.8 F) 02/29/2024 3:19 PM HYDRAULICS ENGINEER Respiratory Rate 15 02/29/2024 6:00 PM HYDRAULICS ENGINEER Oxygen Saturation 96% 02/29/2024 6:00 PM HYDRAULICS ENGINEER Inhaled Oxygen Concentration - - Weight 83.9 kg (185 lb) 02/29/2024 3:19 PM HYDRAULICS ENGINEER Height 165.1 cm (5' 5 ) 02/29/2024 3:19 PM HYDRAULICS ENGINEER Body Mass Index 30.79 02/29/2024 3:19 PM HYDRAULICS ENGINEER Plan of Treatment Health Maintenance Due Date Last Done Comments [place] Annual Wellness Visit 1955 IMM Schedule: Varicella (1 of 2 - 13+ 2-dose series) 1970 IMM Schedule: Pneumococcal (50+ Years) (1 of 2 - PCV) 1976 IMM Schedule: Diphtheria, Tetanus, and Pertussis (1 - Tdap) 06/29/1996 06/28/1996 IMM Schedule: Zoster (1 of 2) 07/01/2007 COVID-19 Vaccine (3 - season) 2024 06/02/2021, 04/01/2021 IMM Schedule: Influenza (#1) 2024, 02/21/2020, 06/21/2019, Additional history exists BREAST CANCER SCREENING EVERY 2 YEARS 10/04/2025 10/05/2023, 08/19/2022, 06/11/2021, Additional history exists IMM Schedule: RSV Patients and ages 60+ (1 - 1-dose 75+ series) 2032 IMM Schedule: Hepatitis A Aged Out No longer eligible based on patient's age to complete this topic IMM Schedule: Hepatitis B Aged Out No longer eligible based on patient's age to complete this topic IMM Schedule: Meningococcal ACWY (Menhibrix/Menomune) Aged Out No longer elig ible based on patient's age to complete this topic IMM Schedule: Meningococcal B Aged Out No longer eligible based on patient's age to complete this topic IMM Schedule: RSV <20 Months Aged Out No longer eligible based on patient's age to complete this topic Procedures Procedure Name Priority Date/Time Associated Diagnosis Comments MAMMO SCREENING DIGITAL BILATERAL Routine 10/05/2023 7:27 AM CDT Encounter for screening mammogram for malignant neoplasm of breast from Last 3 Months or Most Recently Relevant to Health Maintenance Results * Mammography screening digital bilateral (10/05/2023 7:27 AM CDT) Anatomical Region Laterality Modality Breast Bilateral Mammography 10/05/2023 10:3 6 AM CDT Impressions 10/05/2023 10:38 AM CDT Negative (BI-RADS 1). Recommendation: Next mammogram in 12 months. [id number] Narrative 10/05/2023 10:38 AM CDT SCREENING DIGITAL [...] MD IMG MAMMOGRAPHY ORDERABLES Fin al Result from Last 3 Months or Most Recently Relevant to Health Maintenance Insurance MEDICARE A AND B Advance Directives For more information, please contact: [phone] * Full Code (Latest Code Status on File) Date Activated Date Inactivated Comments 02/11/2016 10:33 AM 02/11/2016 5:27 PM * Full Code Date Activated Date Inactivated Comments 06/14/2013 5:57 PM 06/15/2013 8:31 PM * Full Code Date Activated Date Inactivated Comments 06/14/2013 5:46 PM 06/14/2013 5:57 PM Care Teams Ep Tech Relationship Specialty Start Date End Date Juan A Gomez MD [address] [place], [place] [id number] PCP - General Family Medicine 02/20/11 Prosper Cutler MD [address] [place] [address] Otolaryngology 07/10/15 Rupert Byers MD [address] [id number] Obstetrics & Gynecology Gynecology 02/06/16 Ines Villar MD [address] [place] [phone] Internal Medicine - Cardiovascular Disease 11/17/17 Additional Source Comments IMPORTANT NOTICES REGARDING PATIENT [...] person's specific written consent to the redisclosure. [id number].[facility]
--- OUTSIDE RECORDS SUMMARY | 2025-01-01 21:51 | XMS_ITS | Encounter Summary ---
Author Organization [facility] Address [address] [place] [address] Care Team Providers Care Instructional Design Consultant Name Role Phone Juan A Gomez MD Primary Care Provider [phone] Prosper Cutler MD Unavailable [phone] Rpuert Byers MD Unavailable [phone] Ines Villar MD Unavailable [phone] Reason for Referral * Preauth (Routine) - Canceled Specialty Diagnoses / Procedures Referred By Contac t Referred To Contact Radiology Diagnoses Lung nodule Procedures CT chest without contrast Juan A Gomez MD [address] [id number] Phone: tel: fax: Referral ID Status Reason Start Date Expiration Date V isits Requested Visits Authorized [id number] Canceled 06/29/2023 12/29/2024 1 1 Encounter Details Date Type Department Care Team (Late st Contact Info) Description 06/29/2023 Transcribe Orders Central Scheduling [address] [id number] Juan A Gomez MD [address] [id number] Lung nodule (Primary Dx) Social History Tobacco Use Types [...] on file 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 Gender Identity Not on file Sexual Orientation Not on file Occupation Industry Job Start Date Job End Date Not on file Not on file Not on file Not on file documented as of this encounter Plan of Treatment Scheduled Orders Name Type Priority Associated Diagnoses Orde r Schedule CT chest without contrast Imaging Routine Lung nodule Expected: 06/29/2023, Expires: 07/29/2024 documented as of this encounter Visit Diagnoses Diagnosis Lung nodule- Primary Solitary pulmonary nodule documented in this encounter Care Teams Instructional Design Consultant Relationship Specialty Start Date End Date Juan A Gomez MD [facility] [place] [address] PCP - General Family Medicine 02/20/11 Prosper Cutelr MD [address] [place] [address] Otolaryngology 07/10/15 Rupert Byers MD [address] [address] Obstetrics & Gynecology Gynecology 02/06/16 Ines Villar MD [address] [place] [phone] Internal Medicine - Cardiovascular Disease 11/17/17 [...] person's specific written consent to the redisclosure. [id number].[facility]
--- OUTSIDE RECORDS SUMMARY | 2025-01-01 21:51 | XMS_ITS | Encounter Summary ---
Author Organization [employer] Address [address] [place] [address] Care Team Providers Care Career Professional Name Role Phone Juan A Gomez MD Primary Care Provider [phone] Prosper Cutler MD Unavailable Rupert Byers MD Unavailable [phone] Ines Villar MD Unavailable [phone] Opal Henderson MD Unavailable Encounter Details Date Type Department Care Team (Latest Contact Info) Description 05/22/2021 Transcribe Orders Central Scheduling [address] [place] [address] Rupert Byers MD [address] [id number] Encounter for screening mammogram for malignant neoplasm [...] on file Legal 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 Negative (BI-RADS 1). Recommendation: Screening mammogram in one year unless otherwise clinically indicated. [id number] Narrative 06/11/2021 8:43 AM COMMERCIAL REPRESENTATIVE Examination: MAMMO SCREENING DIGITAL BILATERAL Clinical history: Screening. BREAST DENSITY: B - Scattered fibroglandular tissue Comparison: Mammogram dated 05/15/2020, 04/22/2018, 04/15/2017. Technique: 2-D digital mammogram reviewed with CAD. Findings: There are scattered fibroglandular elements. No suspicious abnormalities are identified. Rupert Byers MD IMG MAMMOGRAPHY ORDERABLES Fin al Result documented in this encounter Visit Diagnoses Diagnosis Encounter for screening mammogram for malignant neoplasm of breast- Primary Other screening mammogram Encounter for screening mammogram for malignant neoplasm of breast Other screening mammogram documented in this encounter Care Teams Career Professional Relationship Specialty Start Date End Date Juan A Gomez MD [address] [place] [address] PCP - General Family Medicine 02/20/11 Prosper Cutler MD [address] [place] [phone] Otolaryngology 07/10/15 Rupert Byers MD [address] [place] [address] Obstetrics & Gynecology Gynecology 02/06/16 Ines Villar MD [address] [place] [phone] Internal Medicine - Cardiovascular Disease 11/17/17 Opal Henderson MD [address] [place] [phone] Cardiology 11/29/17 06/17/22 documented as of [...] person's specific written consent to the redisclosure. [id number].[facility]
--- OUTSIDE RECORDS SUMMARY | 2025-01-01 21:51 | XMS_ITS | Encounter Summary ---
Author Organization [employer] Address [address] [place] [address] Care Team Providers Care Hitcher Name Role Phone Juan A Gomez MD Primary Care Provider [phone] Prosper Cutler MD Unavailable [phone] Rupert Byers MD Unavailable [phone] Ines Villar MD Unavailable [phone] Encounter Details Date Type Department Care Team (Late st Contact Info) Description 09/21/2024 Transcribe Orders Central Scheduling [address] [place] [address] Juan A Gomez MD [address] [id number] Social History Tobacco Use Types Packs/Day Years [...] Date Devon rded How often does anyone, inclu jair family and friends, physically hurt you? 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 Gender Identity Not on file Sexual Orientation Not on file Occupation Industry Job Start Date Job End Date Not on file Not on file Not on file Not on file documented as of this encounter Plan of Treatment Not on file documented as of this encounter Visit Diagnoses Not on filedocumented in this encounter Care Teams Hitcher Relationship Specialty Start Date End Date Juan A Gomez MD [address] [place] [address] PCP - General Family Medicine 02/20/11 Prosper Cutler MD [address] [place] [address] Otolaryngology 07/10/15 Rupert Byers MD [address] [facility] [place] [address] Obstetrics & Gynecology Gynecology 02/06/16 Ines Villar MD [address] [place] [phone] Internal Medicine - Cardiovascular Disease 11/17/17 [...] person's specific written consent to the redisclosure. [id number].[facility]
--- OUTSIDE RECORDS SUMMARY | 2025-01-01 21:51 | XMS_ITS | Encounter Summary ---
Author Organization [facility] Address [address] [place] [address] Care Team Providers Care Councilor Name Role Phone Leona Espino MD Primary Care Provider [phone] Juan A Gomez MD Primary Care Provider [phone] Zac Justin MD Unavailable Prosper Cutler MD Unavailable [phone] Jose Carlos Dunn DO Unavailable Rupert Byers MD Unavailable [phone] Ines Villar MD Unavailable [phone] Opal Henderson MD Unavailable Encounter Details Date Type Department Care Team (Late st Contact Info) Description 08/07/2002 Orders Only [facility] [address] [place] [address] Radiology, Generic Radiologist, [address] [place] [id number] Social History Tobacco Use Types Packs/Day Years Used Date Smoking Tobacco: Never Assessed Comments Unknown Sex and Gender Information Value Date Recorded Sex Assigned at Not on file Legal Sex Female 1:32 AM [employer] Gender Identity Not on file Sexual Orientation Not on file documented as of this encounter Plan of Treatment Not on file documented as of this encounter Procedures Procedure Name Priority Date/Time Associated Diagnosis Comments MAMMO SCREENING DIGITAL BILATERAL 01/12/2011 9:[address] CREATININE RECHECK 12/13/2010 8:[address] ABDOMEN PELVIS W WO CONTRAST PER CONTRAST PROTOCOL 12/11/2010 9:06 AM CDT MAMMO SCREENING DIGITAL BILATERAL 01/10/2010 7:59 AM CDT MAMMO SCREENING DIGITAL BILATERAL 11/27/2008 12:49 PM CDT MAMMO SCREENING DIGITAL BILATERAL 01/20/2008 10:59 AM CDT MAMMO DIAGNOSTIC DIGITAL BILATERAL 09/10/2006 4:20 PM CDT MAMMO SCREENING DIGITAL BILATERAL 08/07/2005 11:35 AM CDT MAMMO SCREENING DIGITAL BILATERAL 08/07/2002 2:35 PM CDT documented in this encounter Results * Mammography screening bilateral (01/12/2011 9:10 AM CDT) Anatomical Region Laterality Modality Breast Bilateral Mammography 01/12/2011 9:10 AM CDT 01/12/2011 11:09 AM CDT Narrative 01/12/2011 11:09 AM CDT SCREENING DIGITAL BILATERAL MAMMOGRAPHY Indication: Screening. Comparison: 01/10/10, 01/20/08. Breast Composition: There are scattered fibroglandular densities. Technique: The exam was done with digital mammography and was reviewed with computer-aided detection (CAD). Findings: There is no significant mass or microcalcification. There has been no suspicious change. IMPRESSION: Benign findings (BI-RADS 2). Recommendation: Normal return date in one year. Procedure Note Duane Elmore MD - 03/24/2011 SCREENING DIGITAL BILATERAL MAMMOGRAPHY Indication: Screening. Comparison: 01/10/10, 01/20/08. Breast Composition: There are scattered fibroglandular densities. Technique: The exam was done with digital mammography and was reviewedwith computer-aided detection (CAD). Findings: There is no significant mass or microcalcification. There hasbeen no suspicious change. IMPRESSION: Benign findings (BI-RADS 2). Recommendation: Normal return date in one year. Juan A Gomez MD [facility] [place] F inal Result * CT creatine recheck (12/13/2010 8:08 AM CDT) Anatomical Region Laterality Modality Computed Tomogra phy 12/13/2010 8:08 AM CDT 12/13/2010 10:24 PM CDT Narrative 12/13/2010 10:24 PM CDT CREATININE RECHECK BUN is measured at 16, creatinine 0.5 and GFR 129. 12/11/10 BUN was 19, creatinine 0.7 and GFR 88. The patient was instructed to resume medication. Procedure Note Duane Elmore MD - 03/24/2011 CREATININE RECHECK BUN is measured at 16, creatinine 0.5 and GFR 129. 12/11/10 BUN was 19,creatinine 0.7 and GFR 88. The patient was instructed to resumemedication. Cruz Bee Jr., MD [facility] [place] F inal Result * CT abdomen pelvis with and without contrast (12/11/2010 9:06 AM CDT) Anatomical Region Laterality Modality Abdomen, Pelvis, Hip, CTBODY Com puted Tomography 12/11/2010 9:06 AM CDT 12/11/2010 11:45 AM CDT Narrative 12/11/2010 11:[address] ABDOMEN/PELVIS WITHOUT/WITH CONTRAST History: Right abdominal pain around ovary area. The patient's sister from ovarian cancer, according to notes. BUN was 19, creatinine .7 and GFR 88. After oral contrast, spiral abdomen/pelvis cuts were made before/during/after 100 cc Omnipaque 350 IV, archived at 5 mm. Heart size is normal. Lung bases are clear. There are some surgical sutures in anterior abdominal wall to right of midline. Liver and spleen show no focal lesions, nor does pancreas. Adrenals show no mass or enlargement. Gallbladder is apparently absent. Kidneys show no mass or cortical defect. Collecting systems, ureters and bladder show no stone, filling defect or obstruction. Further inspection does show a tiny nonobstructing 3 mm left upper renal sinus stone. Stomach and small bowel/colon loops show normal configuration. No hernia is visible. There is multifocal aortoiliac plaque without aneurysm. Uterus is apparently still present but doesn't look enlarged or show any evident mass lesion. I see no adnexal mass. No peritoneal nodules or masses are visible anywhere in abdomen or pelvis and I see no adenopathy or ascites. Bone windows show no lytic or blastic focus. IMPRESSION: Atherosclerosis. Evidence of previous right abdominal wall surgery. One tiny nonobstructing left intrarenal stone. No significant CT lesion detected otherwise. Procedure Note Cruz Bee Jr., MD - 03/24/2011 CT ABDOMEN/PELVIS WITHOUT/WITH CONTRAST History: Right abdominal pain around ovary area. The patient's sisterpassed away from ovarian cancer, according to notes. BUN was 19, creatinine .7 and GFR 88. After oral contrast, spiral abdomen/pelvis cuts were madebefore/during/after 100 cc Omnipaque 350 IV, archived at 5 mm. Heart size is normal. Lung bases are clear. There are some surgical sutures in anterior abdominal wall to right ofmidline. Liver and spleen show no focal lesions, nor does pancreas.Adrenals show no mass or enlargement. Gallbladder is apparently absent.Kidneys show no mass or cortical defect. Collecting systems, ureters andbladder show no stone, filling defect or obstruction. Further inspection does show a tiny nonobstructing 3 mm left upper renalsinus stone. Stomach and small bowel/colon loops show normal configuration. No herniais visible. There is multifocal aortoiliac plaque without aneurysm. Uterus is apparently still present but doesn't look enlarged or show anyevident mass lesion. I see no adnexal mass. No peritoneal nodules or masses are visible anywhere in abdomen or pelvisand I see no adenopathy or ascites. Bone windows show no lytic or blastic focus. IMPRESSION: Atherosclerosis. Evidence of previous right abdominal wall surgery. One tiny nonobstructing left intrarenal stone. No significant CT lesion detected otherwise. Juan A Gomez MD [facility] [place] Final Resu lt * Mammography screening bilateral (01/10/2010 7:59 AM CDT) Anatomical Region Laterality Modality Breast Bilateral Mammography 01/10/2010 7:59 AM CDT 01/10/2010 9:14 AM CDT Narrative 01/10/2010 9:14 AM CDT SCREENING DIGITAL BILATERAL MAMMOGRAPHY Indication: Screening. Comparison: 11/27/08. Breast Composition: There are scattered fibroglandular densities. Technique: The exam was done with digital mammography and was reviewed with computer-aided detection (CAD). Findings: No mass or calcification is demonstrated. There has been no suspicious change. IMPRESSION: Negative (BI-RADS 1). Recommendation: Normal return date in one year. Procedure Note Charles Gonzalez MD - 03/20/2011 SCREENING DIGITAL BILATERAL MAMMOGRAPHY Indication: Screening. Comparison: 11/27/08. Breast Composition: There are scattered fibroglandular densities. Technique: The exam was done with digital mammography and was reviewedwith computer-aided detection (CAD). Findings: No mass or calcification is demonstrated. There has been nosuspicious change. IMPRESSION: Negative (BI-RADS 1). Recommendation: Normal return date in one year. Juan A Gomez MD [facility] [place] F inal Result * Mammography screening bilateral (11/27/2008 12:49 PM CDT) Anatomical Region Laterality Modality Breast Bilateral Mammography 11/27/2008 12:4 9 PM CDT 11/27/2008 2:20 PM CDT Narrative 11/27/2008 2:20 PM CDT SCREENING DIGITAL BILATERAL MAMMOGRAPHY Indication: Routine screening. Comparison: 01/20/08 and 08/07/05. Breast Composition: There are scattered fibroglandular densities. Technique: The exam was done with the Tap[employer]the 2000D full-field digital mammography unit. The mammogram was reviewed with the [employer] mammography computer-aided detection system. Premium View processing was also applied. Discussion: There are no suspicious nodules, suspicious clusters of microcalcifications, or areas of architectural distortion to suggest malignancy. No change from the prior exams. IMPRESSION: Negative (BI-RADS 1). Recommendation: Next mammogram in one year. Procedure Note Ayush Maloney MD - 03/18/2011 SCREENING DIGITAL BILATERAL MAMMOGRAPHY Indication: Routine screening. Comparison: 01/20/08 and 08/07/05. Breast Composition: There are scattered fibroglandular densities. Technique: The exam was done with the [employer]. Zimple[employer]e 2000D full-fielddigital mammography unit. The mammogram was reviewed with the [employer] mammography computer-aided detection system. PremiumView processing was also applied. Discussion: There are no suspicious nodules, suspicious clusters ofmicrocalcifications, or areas of architectural distortion to suggestmalignancy. No change from the prior exams. IMPRESSION: Negative (BI-RADS 1). Recommendation: Next mammogram in one year. Juan A Gomez MD [facility] [place] F inal Result * Mammography screening bilateral (01/20/2008 10:59 AM CDT) Anatomical Region Laterality Modality Breast Bilateral Mammography 01/20/2008 10:5 9 AM CDT 01/20/2008 12:22 PM CDT Narrative 01/20/2008 12:22 PM CDT SCREENING DIGITAL MAMMOGRAPHY Indication: Routine screening. Comparison: 09/10/06, 08/07/02. Breast Composition: There are scattered fibroglandular densities. Findings: The exam was done with the [employer]. Ap[employer] Medical[employer]he 2000D full-field digital mammography unit. The mammogram was reviewed with the [employer] mammography computer-aided detection system. Premium View processing was also applied. There is no significant mass or microcalcification. There has been no suspicious change. IMPRESSION: Benign findings (BI-RADS 2). Recommendation: Normal return date in one year. Procedure Note Duane Elmore MD - 03/18/2011 SCREENING DIGITAL MAMMOGRAPHY Indication: Routine screening. Comparison: 09/10/06, 08/07/02. Breast Composition: There are scattered fibroglandular densities. Findings: The exam was done with the [employer] 2000D full-fielddigital mammography unit. The mammogram was reviewed with the [employer] mammography computer-aided detection system. PremiumView processing was also applied. There is no significant mass or microcalcification. There has been nosuspicious change. IMPRESSION: Benign findings (BI-RADS 2). Recommendation: Normal return date in one year. us Juan A Gomez MD [facility] MAMMOGRAPHY ORDERABLES F inal Result * Mammography diagnostic digital bilateral with CAD (09/10/2006 4:20 PM CDT) Anatomical Region Laterality Modality Breast Bilateral Mammography 09/10/2006 4:20 PM CDT 09/11/2006 12:20 PM CDT Narrative 09/11/2006 12:20 PM CDT DIAGNOSTIC BILATERAL DIGITAL MAMMOGRAPHY Reason for the Study: The patient has yellowish discharge on the right. Breast Composition: The breast tissue is almost entirely fat. Findings: The exam was done with the [employer]he 2000D full-field digital mammography unit. The mammogram was reviewed with the [employer] mammography computer-aided detection system. Premium View processing was also applied. Coned-down compression views of the retroareolar region of the right breast were done. These show no significant abnormality. There is no significant finding in either breast. There has been no significant change from 08/07/02. IMPRESSION: Negative (BI-RADS 1). Recommendation: Next mammogram in one year. Procedure Note Irvin Land MD - 03/16/2011 DIAGNOSTIC BILATERAL DIGITAL MAMMOGRAPHY Reason for the Study: The patient has yellowish discharge on the right. Breast Composition: The breast tissue is almost entirely fat. Findings: The exam was done with the [employer] International[employer]he 2000D full-fielddigital mammography unit. The mammogram was reviewed with the [employer] mammography computer-aided detection system. PremiumView processing was also applied. Coned-down compression views of the retroareolar region of the rightbreast were done. These show no significant abnormality. There is no significant finding in either breast. There has been nosignificant change from 08/07/02. IMPRESSION: Negative (BI-RADS 1). Recommendation: Next mammogram in one year. Leonardo Pabon MD [facility] [place] Fi nal Result * Mammography screening bilateral (08/07/2005 11:35 AM CDT) Anatomical Region Laterality Modality Breast Bilateral Mammography 08/07/2005 11:3 5 AM CDT 08/10/2005 7:46 AM CDT Narrative 08/10/2005 7:46 AM CDT SCREENING DIGITAL MAMMOGRAPHY Indication: Routine screening. Comparison: 08/05/01. Breast Composition: There are scattered fibroglandular densities. Findings: The exam was done with the [employer]arshallindex. [employer]imple[employer]e 2000D full-field digital mammography unit. The mammogram was reviewed with the [employer] Point digital mammography computer- aided detection system. Premium View processing was also applied. No mass or calcification is demonstrated. There has been no suspicious change. IMPRESSION: Negative (BI-RADS 1). Recommendation: Normal return date in one year. Procedure Note Charles Gonzalez MD - 03/16/2011 SCREENING DIGITAL MAMMOGRAPHY Indication: Routine screening. Comparison: 08/05/01. Breast Composition: There are scattered fibroglandular densities. Findings: The exam was done with the [employer].marshallindex. Senographe 2000D full-fielddigital mammography unit. The mammogram was reviewed with theMy Single Point digital mammography computer-aided detection system. PremiumView processing was also applied. No mass or calcification is demonstrated. There has been no suspiciouschange. IMPRESSION: Negative (BI-RADS 1). Recommendation: Normal return date in one year. us Leonardo Pabon MD [place] MAMMOGRAPHY ORDERABLES Fi nal Result * Mammography screening bilateral (08/07/2002 2:35 PM CDT) Anatomical Region Laterality Modality Breast Bilateral Mammography 08/07/2002 2:35 PM CDT 08/08/2002 10:55 AM CDT Narrative 08/08/2002 10:55 AM CDT SCREENING DIGITAL MAMMOGRAPHY: 08/07/02 Reason for the Study: Screening. Parenchymal pattern: There are scattered fibroglandular densities. Findings: The exam was done with the [employer].marshallindex. Senographe 2000D full-field digital mammography unit. The mammogram was reviewed with the [employer] mammography computer- aided detection system. The parenchymal pattern is relatively symmetrical. There is no dominant mass or significant calcification. There has been no significant change from 08/05/01. IMPRESSION: Negative. Recommendation: Next mammogram in one year. Letter #1 Procedure Note Cruz Bee Jr., MD - 03/16/2011 SCREENING DIGITAL MAMMOGRAPHY: 08/07/02 Reason for the Study: Screening. Parenchymal pattern: There are scattered fibroglandular densities. Findings: The exam was done with the TapDog.E. Senographe 2000D full-fielddigital mammography unit. The mammogram was reviewed with [email or web address] digital mammography computer-aided detection system. The parenchymal pattern is relatively symmetrical. There is no dominantmass or significant calcification. There has been no significant changefrom 08/05/01. IMPRESSION: Negative. Recommendation: Next mammogram in one year. Letter #1 us Generic Radiologist Radiology IMG MAMMOGRAPHY ORDERABLES Final Result documented in this encounter Visit Diagnoses Not on filedocumented in this encounter Additional Health Concerns Infection Onset Date Last Indicated Resolved Time COVID - 19 Rule Out 01/17/2020 01/17/2020 01/17/20 20 7:48 PM CDT COVID - 19 Rule Out 04/11/2020 04/11/2020 04/12/19 21 3:29 PM [employer] COVID - 19 Confirmed 04/11/2020 04/11/2020 021 12:24 AM [employer] documented as of this encounter Care Teams Councilor Relationship Specialty Start Date End Date Leona Espino MD [address] [facility][NOTE 3]. [address] [place] [address] PCP - General 11/15/1986 02/19/11 Juan A Gomez MD [address] [place] [address] PCP - General Family Medicine 02/20/11 Zac Justin MD [facility] [place] [address] Cardiology 06/29/13 11/16/17 Prosper Cutler MD [facility] [place] [address] Otolaryngology 07/10/15 Jose Carlos Dunn DO [address] [place] [phone] Consulting Physician Cardiology 02/06/16 11/16/17 Rupert Byers MD [address] [place] [id number] Obstetrics & Gynecology Gynecology 02/06/16 Ines Villar MD [address] [place] [phone] Internal Medicine - Cardiovascular Disease 11/17/17 Opal Henderson MD [address] [place] [phone] Cardiology 11/29/17 06/17/22 documented as of [...] person's specific written consent to the redisclosure. [id number].[facility]
--- OUTSIDE RECORDS SUMMARY | 2025-01-01 21:51 | XMS_ITS | Encounter Summary ---
Author Organization [facility] Address [address] [id number] Care Team Providers Care School Psychometrist Name Role Phone Juan A Gomez MD Primary Care Provider [phone] Prosper Cutler MD Unavailable Rupert Byers MD Unavailable [phone] Ines Villar MD Unavailable [phone] Opal Henderson MD Unavailable Encounter Details Date Type Department Care Team (Late st Contact Info) Description 04/14/2018 Transcribe Orders [facility] [address] [place] [address] Den Garcia MD [address] [place] [address] Diarrhea, unspecified type (Primary Dx); Hypomagnesemia Social History Tobacco Use Types Packs/Day Years Used Date Smoking Tobacco: Former Cigarettes 2 17 0 11/20/1972 - 11/20/1989 Smokeless Tobacco: Never Alcohol Use Standard Drinks/Week Comments Yes 0 (1 standard drink = 0.6 oz pur e alcohol) rarely Comments No Sex and Gender Information Value Date Recorded Sex Assigned at Not on file Legal Sex Female 1:32 AM TURRET LATHE MACHINIST Gender Identity Not on file Sexual Orientation Not on file Occupation Industry Job Start Date Job End Date Not on file Not on file Not on file Not on file documented as of this encounter Plan of Treatment Not on file documented as of this encounter Results * Magnesium (Mg) (Blood) (04/14/2018 4:47 PM TURRET LATHE MACHINIST) Magnesium 1.9 1.7 - 2.6 mg/dL 04/14/2018 6:50 PM TURRET LATHE MACHINIST [facility] Plasma PLASMA SPECIMEN / Unknown 04/14/2018 4:47 PM TURRET LATHE MACHINIST 04/14/2018 6:08 PM TURRET LATHE MACHINIST Den Garcia MD LAB BLOOD ORDERABLES Final Resu lt Performing Organization Address [facility] de Phone Number [facility] [address] [place] [address] * Celiac disease panel (SO) (04/14/2018 4:47 PM TURRET LATHE MACHINIST) IGA 310 68 - 408 mg/dL 04/17/2018 3:36 AM TURRET LATHE MACHINIST [facility] Comment: (NOTE) Total IgA is within or higher than established ranges. Tissue Transglutaminase, IgA to follow. REFERENCE INTERVAL: Immunoglobulin A Access complete set of age- and/or gender-specific reference intervals for this test in the [facility] Test Directory ([email or web address]). Performed by [facility], [address] [place] [id number] [email or web address], Deondre Berkowitz MD, Lab. Director Serum SERUM SPECIMEN / Unknown 04/14/2018 4:47 PM TURRET LATHE MACHINIST 04/14/2018 6:08 PM TURRET LATHE MACHINIST Den Garcia MD LAB BLOOD ORDERABLES Final Resu lt Performing Organization Address [facility] Co de Phone Number [facility] [address] [place] [address] * Westergren Sed Rate (ESR) (04/14/2018 4:47 PM TURRET LATHE MACHINIST) Westergren Sed Rate 18 0 - 20 mm/h 04/14/2018 6:29 PM TURRET LATHE MACHINIST [facility] Whole Blood WHOLE BLOOD SPECIMEN / Unknown 04/14/2018 4:47 PM TURRET LATHE MACHINIST 04/14/2018 6:08 PM TURRET LATHE MACHINIST us Den Garcia MD LAB BLOOD ORDERABLES Final Resu lt Performing Organization Address [facility] Co de Phone Number [facility] [address] [place] [address] * Free thyroxin (Free T4) (04/14/2018 4:47 PM TURRET LATHE MACHINIST) Free T4 0.87 0.61 - 1.12 04/14/2018 6:50 PM TURRET LATHE MACHINIST [facility] Serum SERUM SPECIMEN / Unknown 04/14/2018 4:47 PM TURRET LATHE MACHINIST 04/14/2018 6:08 PM TURRET LATHE MACHINIST us Den Garcia MD LAB BLOOD ORDERABLES Final Resu lt Performing Organization Address [facility] Co de Phone Number [facility] [address] [place] [address] * Thyroid stimulating hormone (TSH) (04/14/2018 4:47 PM TURRET LATHE MACHINIST) Thyroid Stimulating Hormone 2.33 0.42 - 5.47 uIU/mL 04/14/2018 6:50 PM TURRET LATHE MACHINIST [facility] Plasma PLASMA SPECIMEN / Unknown 04/14/2018 4:47 PM TURRET LATHE MACHINIST 04/14/2018 6:08 PM TURRET LATHE MACHINIST us Den Garcia MD LAB BLOOD ORDERABLES Final Resu lt Performing Organization Address [facility] Co de Phone Number [facility] [address] [place] [address] * (ABNORMAL) Lipase (04/14/2018 4:47 PM TURRET LATHE MACHINIST) Lipase 57(H) 22 - 51 U/L 04/14/2018 6:50 PM TURRET LATHE MACHINIST [facility] Plasma PLASMA SPECIMEN / Unknown 04/14/2018 4:47 PM TURRET LATHE MACHINIST 04/14/2018 6:08 PM TURRET LATHE MACHINIST us Den Garcia MD LAB BLOOD ORDERABLES Final Resu lt Performing Organization Address [facility]/ZIP Co de Phone Number [facility] [address] [phone] * Amylase (Blood) (04/14/2018 4:47 PM TURRET LATHE MACHINIST) Amylase 78 36 - 128 IU/L 04/14/2018 6:50 PM [facility] Plasma PLASMA SPECIMEN / Unknown 04/14/2018 4:47 PM TURRET LATHE MACHINIST 04/14/2018 6:08 PM TURRET LATHE MACHINIST Den Garcia MD LAB BLOOD ORDERABLES Final Resu lt Performing Organization Address [facility] Co de Phone Number [facility] [address] [phone] * (ABNORMAL) Comprehensive metabolic panel (04/14/2018 4:47 PM TURRET LATHE MACHINIST) Glucose 149(H) 70 - 100 mg/dL 04/14/2018 6:50 PM [facility] BUN 22(H) 7.0 - 18.0 mg/dL 04/14/2018 6:50 PM [facility] Creatinine 1.0 0.6 - 1.3 mg/dL 04/14/2018 6:50 PM [facility] Sodium 139 136 - 145 mmol/L 04/14/2018 6:50 PM [facility] Potassium 4.2 3.3 - 5.0 mmol/L 04/14/2018 6:50 PM [facility] Chloride 101 99 - 111 mmol/L 04/14/2018 6:50 PM [facility] Carbon Dioxide 28 20 - 31 mmol/L 04/14/2018 6:50 PM [facility] Calcium 9.3 8.1 - 10.2 mg/dL 04/14/2018 6:50 PM [facility] Protein 6.3 6.1 - 7.9 g/dl 04/14/2018 6:50 PM [facility] Albumin 3.5 3.4 - 5.0 g/dl 04/14/2018 6:50 PM [facility] Bilirubin 0.44 0 - 1.50 mg/dL 04/14/2018 6:50 PM [facility] SGOT- AST 24 15 - 41 U/L 04/14/2018 6:50 PM [facility] SGPT- ALT 17 14 - 54 U/L 04/14/2018 6:50 PM [facility] Alkaline Phosphatase 60 30 - 120 U/L 04/14/2018 6:50 PM [facility] Glomerular Filtration Rate, Est. 57 mL/min 04/14/2018 6:50 PM [facility] If -Cypriot 68 04/14/2018 6:50 PM [facility] Comment: GFR WITH KIDNEY DAMAGE W/O DAMAGE >=90 STAGE 1 NORMAL 60-89 STAGE 2 DEC GFR 30-59 STAGE 3 STAGE 3 15-29 STAGE 4 STAGE 4 <15 STAGE 5 STAGE 5 The MDRD GFR formula is valid only for adults b/w age18 and 70. Plasma PLASMA SPECIMEN / Unknown 04/14/2018 4:47 PM TURRET LATHE MACHINIST 04/14/2018 6:08 PM TURRET LATHE MACHINIST us Den Garcia MD LAB BLOOD ORDERABLES Final Resu lt Performing Organization Address City/State/[facility] Co de Phone Number [facility] [address] [place] [address] * (ABNORMAL) CBC With Differential (04/14/2018 4:47 PM TURRET LATHE MACHINIST) White Blood Cells 7.9 4.8 - 10.8 10*9/L 04/14/2018 6:14 PM [facility] Red Blood Cells 4.31 4.2 - 5.4 10*12/L 04/14/2018 6:14 PM [facility] Hemoglobin 13.2 12.0 - 16.0 g/dL 04/14/2018 6:14 PM [facility] Hematocrit 38.0 36 - 48 % 04/14/2018 6:14 PM [facility] MCV 88.1 80 - 100 fL 04/14/2018 6:14 PM [facility] MCH 30.5 26 - 34 pg 04/14/2018 6:14 PM [facility] MCHC 34.6 31 - 36 g/dL 04/14/2018 6:14 PM [facility] RDW 13.6 11.5 - 14.5 % 04/14/2018 6:14 PM [facility] Platelet Count 224 150 - 450 10*9/L 04/14/2018 6:14 PM [facility] MPV 9.4 7.4 - 10.4 fL 04/14/2018 6:14 PM [facility] Differential Type AUTO DIFF 04/14/2018 6:14 PM [facility] Percent Neutrophils 54.3 35 - 80 % 04/14/2018 6:14 PM [facility] Percent Lymphs 28.9 18 - 44 % 04/14/2018 6:14 PM [facility] Percent Monocytes 9.3 0 - 10 % 04/14/2018 6:14 PM [facility] Percent Eosinophils 6.3(H) 0 - 3 % 04/14/2018 6:14 PM [facility] Percent basophil 1.2(H) 0 - 1 % 04/14/19 19 6:14 PM [facility] Absolute Neutrophil 4.3 1.8 - 7.7 10*9/L 04/14/2018 6:14 PM [facility] Absolute Lymphs 2.3 0.8 - 4.8 10*9/L 04/14/2018 6:14 PM [facility] Absolute Monocytes 0.7 0.2 - 0.9 10*9/L 04/14/2018 6:14 PM [facility] Absolute Eosinophils 0.5 0.0 - 0.8 10*9/L 04/14/2018 6:14 PM [facility] Absolute Basophils 0.1 0.0 - 0.1 10*9/L 04/14/2018 6:14 PM [facility] Whole Blood WHOLE BLOOD SPECIMEN / Unknown 04/14/2018 4:47 PM TURRET LATHE MACHINIST 04/14/2018 6:08 PM TURRET LATHE MACHINIST us Den Garcia MD LAB BLOOD ORDERABLES Final Resu lt [facility] [address] [place] [address] documented in this encounter Visit Diagnoses Diagnosis Diarrhea, unspecified type- Primary Hypomagnesemia Disorders of magnesium metabolism documented in this encounter Additional Health Concerns Infection Onset Date Last Indicated Resolved Time COVID - 19 Rule Out 01/17/2020 01/17/2020 01/17/20 20 7:48 PM CDT COVID - 19 Rule Out 04/11/2020 04/11/2020 04/12/19 21 3:29 PM TURRET LATHE MACHINIST COVID - 19 Confirmed 04/11/2020 04/11/2020 021 12:24 AM TURRET LATHE MACHINIST documented as of this encounter Care Teams School Psychometrist Relationship Specialty Start Date End Date Juan A Gomez MD [address] [place] [address] PCP - General Family Medicine 02/20/11 Prosper Cutler MD [address] [place] [address] Otolaryngology 07/10/15 Rupert Byers MD [address] [place] [address] Obstetrics & Gynecology Gynecology 02/06/16 Ines Villar MD [address] [place] [address] Internal Medicine - Cardiovascular Disease 11/17/17 Opal Henderson MD [address] [place] [phone] Cardiology 11/29/17 06/17/22 documented as of [...] from records protected by Federalconfidentiality rules ( [facility] rules restrict any use of the information [...] person's specific written consent to the redisclosure. [id number].[facility]
--- OUTSIDE RECORDS SUMMARY | 2025-01-01 21:51 | XMS_ITS | Encounter Summary ---
Author Organization [employer] Address [address] [place] [address] Care Team Providers Care Resaw Feeder Name Role Phone Juan A Gomez MD Primary Care Provider [phone] Zac Justin MD Unavailable [phone] Prosper Cutler MD Unavailable Jose Carlos Dunn DO Unavailable Rupert Byers MD Unavailable [phone] Ines Villar MD Unavailable [phone] Opal Henderson MD Unavailable [phone] Reason for Referral * Preauth (Routine) - Closed Specialty Diagnoses / Procedures Referred By Contac t Referred To Contact Radiology Diagnoses Pain pelvic Procedures Ultrasound non-ob transvaginal Rupert Byers MD Phone: tel: fax: Referral ID Status Reason Start Date Expiration Date Visits Re quested Visits Authorized [id number] Closed 04/07/2017 04/04/2018 1 1 ASE INTERVENTION SPECIALIST * Preauth (Routine) - Closed Specialty Diagnoses / Procedures Referred By Contac t Referred To Contact Radiology Diagnoses Pain pelvic Procedures Ultrasound pelvis complete Rupert Byers MD Phone: tel: fax: Referral ID Status Reason Start Date Expiration Date Visits Re quested Visits Authorized [id number] Closed 04/07/2017 04/04/2018 1 1 ASE INTERVENTION SPECIALIST Encounter Details Date Type Department Care Team (Latest Contact Info) Description 04/06/2017 Transcribe Orders Central Scheduling [address] [place] [address] Rupert Byers MD [address] [place] [address] Encounter for screening mammogram for malignant neoplasm of breast (Primary Dx); Pain pelvic Social History Tobacco Use Types Packs/Day Years Used Date Smoking Tobacco: Former Cigarettes 2 17 0 11/20/1972 - 11/20/1989 Smokeless Tobacco: Never Alcohol Use Standard Drinks/Week Comments Yes 0 (1 standard drink = 0.6 oz pur e alcohol) rarely Comments No Sex and Gender Information Value Date Recorded Sex Assigned at Not on file Legal Sex Female 1:32 AM DISEASE INTERVENTION SPECIALIST Gender Identity Not on file Sexual Orientation Not on file Occupation Industry Job Start Date Job End Date Not on file Not on file Not on file Not on file documented as of this encounter Plan of Treatment Not on file documented as of this encounter Results * Mammography screening digital bilateral w/ CAD (04/15/2017 7:43 AM DISEASE INTERVENTION SPECIALIST) Anatomical Region Laterality Modality Breast Bilateral Mammography 04/15/2017 8:33 AM DISEASE INTERVENTION SPECIALIST Impressions 04/15/2017 8:34 AM DISEASE INTERVENTION SPECIALIST Benign findings (BI-RADS 2). Recommendation: Next mammogram in 12 months. Narrative 04/15/2017 8:34 AM DISEASE INTERVENTION SPECIALIST SCREENING DIGITAL BILATERAL MAMMOGRAPHY (2D) Indication: Screening. Comparison: 02/21/2016, 02/18/2015, 02/15/2014. Breast Composition: The breast tissue is almost entirely fat. Technique: The exam was done with 2D digital mammography and was reviewed with computer- aided detection (CAD). Findings: There is no significant mass or microcalcification. There has been no significant change. us Rupert Byers MD [facility] MAMMO[facility]APHY ORDERABLES Fin al Result * Ultrasound non-ob transvaginal (04/15/2017 7:37 AM DISEASE INTERVENTION SPECIALIST) Anatomical Region Laterality Modality Pelvis Ultrasound 04/15/2017 7:40 AM DISEASE INTERVENTION SPECIALIST Impressions 04/15/2017 7:44 AM DISEASE INTERVENTION SPECIALIST Small uterine fibroid. Otherwise negative. Narrative 04/15/2017 7:44 AM DISEASE INTERVENTION SPECIALIST ENDOVAGINAL AND TRANSABDOMINAL PELVIC SONOGRAPHY Indication: 61-year-old female with pelvic pain. Findings: Uterus: 7.6 x 5.2 x 2.6 cm with endometrial thickness of less than 1 mm. Echogenic 1.2 cm mass posterior fundal myometrium, probably a fibroid. Right ovary: 1.8 x 1.5 x 1.0 cm and otherwise unremarkable. Left ovary: 1.7 x 1.5 x 0.8 cm and otherwise unremarkable. Other: No free pelvic fluid. Procedure Note Charles Gonzalez MD - 04/15/2017 ENDOVAGINAL AND TRANSABDOMINAL PELVIC SONOGRAPHY Indication: 61-year-old female with pelvic pain. Findings: Uterus: 7.6 x 5.2 x 2.6 cm with endometrial thickness of less than 1 mm.Echogenic 1.2 cm mass posterior fundal myometrium, probably a fibroid. Right ovary: 1.8 x 1.5 x 1.0 cm and otherwise unremarkable. Left ovary: 1.7 x 1.5 x 0.8 cm and otherwise unremarkable. Other: No free pelvic fluid. IMPRESSION: Small uterine fibroid. Otherwise negative. us Rupert Byers MD [facility] US ORDERABLES Final Result * Ultrasound pelvis complete (04/15/2017 7:37 AM DISEASE INTERVENTION SPECIALIST) Anatomical Region Laterality Modality Abdomen, Pelvis, Hip Ultrasound 04/15/2017 7:40 AM DISEASE INTERVENTION SPECIALIST Impressions 04/15/2017 7:44 AM DISEASE INTERVENTION SPECIALIST Small uterine fibroid. Otherwise negative. Narrative 04/15/2017 7:44 AM DISEASE INTERVENTION SPECIALIST ENDOVAGINAL AND TRANSABDOMINAL PELVIC SONOGRAPHY Indication: 61-year-old female with pelvic pain. Findings: Uterus: 7.6 x 5.2 x 2.6 cm with endometrial thickness of less than 1 mm. Echogenic 1.2 cm mass posterior fundal myometrium, probably a fibroid. Right ovary: 1.8 x 1.5 x 1.0 cm and otherwise unremarkable. Left ovary: 1.7 x 1.5 x 0.8 cm and otherwise unremarkable. Other: No free pelvic fluid. Procedure Note Charles Gonzalez MD - 04/15/2017 ENDOVAGINAL AND TRANSABDOMINAL PELVIC SONOGRAPHY Indication: 61-year-old female with pelvic pain. Findings: Uterus: 7.6 x 5.2 x 2.6 cm with endometrial thickness of less than 1 mm.Echogenic 1.2 cm mass posterior fundal myometrium, probably a fibroid. Right ovary: 1.8 x 1.5 x 1.0 cm and otherwise unremarkable. Left ovary: 1.7 x 1.5 x 0.8 cm and otherwise unremarkable. Other: No free pelvic fluid. IMPRESSION: Small uterine fibroid. Otherwise negative. us Rupert Byers MD IMG US ORDERABLES Final Result documented in this encounter Visit Diagnoses Diagnosis Encounter for screening mammogram for malignant neoplasm of breast- Primary Other screening mammogram Pain pelvic Unspecified symptom associated with female genital organs Encounter for screening mammogram for malignant neoplasm of breast Other screening mammogram Pain pelvic Unspecified symptom associated with female genital organs Pain pelvic Unspecified symptom associated with female genital organs documented in this encounter Additional Health Concerns Infection Onset Date Last Indicated Resolved Time COVID - 19 Rule Out 01/17/2020 01/17/2020 01/17/20 20 7:48 PM CDT COVID - 19 Rule Out 04/11/2020 04/11/2020 04/12/19 21 3:29 PM DISEASE INTERVENTION SPECIALIST COVID - 19 Confirmed 04/11/2020 04/11/2020 021 12:24 AM DISEASE INTERVENTION SPECIALIST documented as of this encounter Care Teams Resaw Feeder Relationship Specialty Start Date End Date Juan A Gomez MD [address] [facility] [place] [address] PCP - General Family Medicine 02/20/11 Zac Justin MD [address] [facility] [place] [address] Cardiology 06/29/13 11/16/17 Prosper Cutler MD [address] [place] [address] Otolaryngology 07/10/15 Jose Carlos Dunn DO [facility] [place] [address] Consulting Physician Cardiology 02/06/16 11/16/17 Rupert Byers MD [address] [facility] [place] [address] Obstetrics & Gynecology Gynecology 02/06/16 Ines Villar MD [address] [place] [phone] Internal Medicine - Cardiovascular Disease 11/17/17 Opal Henderson MD [address] [place] [phone] Cardiology 11/29/17 06/17/22 documented as of [...] person's specific written consent to the redisclosure. [id number].[facility]
--- OUTSIDE RECORDS SUMMARY | 2025-01-01 21:51 | XMS_ITS | Encounter Summary ---
Author Organization [employer] Address [address] [place] [address] Care Team Providers Care Newspaper Or Periodical Editor Name Role Phone Juan A Gomez MD Primary Care Provider [phone] Prosper Cutler MD Unavailable Rupert Byers MD Unavailable [phone] Ines Villar MD Unavailable [phone] Opal Henderson MD Unavailable [phone] Encounter Details Date Type Department Care Team (Latest Contact Info) Description 05/15/2020 Transcribe [facility] Radiology [address] [id number] Rupert Byers MD [address] [place] [id number] Encounter for screening mammogram for malignant neoplasm [...] on file Legal Sex Female 1:32 AM CITRIX CONSULTANT Gender Identity Not on file Sexual Orientation Not on file Occupation Industry Job Start Date Job End Date Not on file Not on file Not on file Not on file COVID-19 Exposure Response Date Recorded In the last month, have you been in contact with someone who was confirmed or suspected to have Coronavirus / COVID-19? No / Unsure 05/15/2020 2:38 PM CITRIX CONSULTANT documented as of this encounter Plan of Treatment Not on file documented as of this encounter Results * Mammography screening digital bilateral w/ CAD (05/15/2020 2:49 PM CITRIX CONSULTANT) Anatomical Region Laterality Modality Breast Bilateral Mammography 05/15/2020 3:24 PM CITRIX CONSULTANT Impressions 05/15/2020 3:28 PM CITRIX CONSULTANT Benign findings (BI-RADS 2). Recommendation: Normal return date in one year unless otherwise clinically indicated. [id number] Narrative 05/15/2020 3:28 PM CITRIX CONSULTANT SCREENING DIGITAL BILATERAL MAMMOGRAPHY (2D) Indication: Screening. Comparison: 04/22/2018, 04/15/2017, 02/21/2016, 01/10/2010. Breast Composition: There are scattered fibroglandular densities. Technique: The exam was done with 2D digital mammography and was reviewed with computer- aided detection (CAD). Findings: No dominant or spiculated mass is seen in either breast. No suspicious clustered microcalcifications or architectural distortion is identified. The glandular pattern is stable. There has been no suspicious change. Rupert Byers MD IMG MAMMOGRAPHY ORDERABLES Fin al Result documented in this encounter Visit Diagnoses Diagnosis Encounter for screening mammogram for malignant neoplasm of breast- Primary Other screening mammogram Encounter for screening mammogram for malignant neoplasm of breast Other screening mammogram documented in this encounter Care Teams Newspaper Or Periodical Editor Relationship Specialty Start Date End Date Juan A Gomez MD [facility] [place] [address] PCP - General Family Medicine 02/20/11 Prosper Cutler MD [address] [place] [address] Otolaryngology 07/10/15 Rupert Byers MD [address] [address] Obstetrics & Gynecology Gynecology 02/06/16 Ines Villar MD [address] [place] [phone] Internal Medicine - Cardiovascular Disease 11/17/17 Opal Henderson MD [address] [place] [phone] Cardiology 11/29/17 06/17/22 documented as of [...] person's specific written consent to the redisclosure. [id number].[facility]
--- OUTSIDE RECORDS SUMMARY | 2025-01-01 21:51 | XMS_ITS | Encounter Summary ---
Author Organization [facility] Address [address] [place] [address] Care Team Providers Care Glass Blower Name Role Phone Juan A Gomez MD Primary Care Provider [phone] Prosper Cutler MD Unavailable Rupert Byers MD Unavailable [phone] Ines Villar MD Unavailable [phone] Opal Henderson MD Unavailable Encounter Details Date Type Department Care Team (Late st Contact Info) Description 04/14/2018 Transcribe Orders [facility] [address] [facility], [facility] [address] [place] [address] Den Garcia MD [address] [facility] [address] [place] [address] Diarrhea (Primary Dx) Social History Tobacco Use Types Packs/Day Years Used Date Smoking Tobacco: Former Cigarettes 2 17 0 11/20/1972 - 11/20/1989 Smokeless Tobacco: Never Alcohol Use Standard Drinks/Week Comments Yes 0 (1 standard drink = 0.6 oz pur e alcohol) rarely Comments No Sex and Gender Information Value Date Recorded Sex Assigned at Not on file Legal Sex Female 1:32 AM SYRUP FILTERER Gender Identity Not on file Sexual Orientation Not on file Occupation Industry Job Start Date Job End Date Not on file Not on file Not on file Not on file documented as of this encounter Plan of Treatment Not on file documented as of this encounter Visit Diagnoses Diagnosis Diarrhea- Primary documented in this encounter Additional Health Concerns Infection Onset Date Last Indicated Resolved Time COVID - 19 Rule Out 01/17/2020 01/17/2020 01/17/20 20 7:48 PM CDT COVID - 19 Rule Out 04/11/2020 04/11/2020 04/12/19 21 3:29 PM SYRUP FILTERER COVID - 19 Confirmed 04/11/2020 04/11/2020 021 12:24 AM SYRUP FILTERER documented as of this encounter Care Teams Glass Blower Relationship Specialty Start Date End Date Juan A Gomez MD [facility] [place] [address] PCP - General Family Medicine 02/20/11 Prosper Cutler MD [facility] [place] [phone] Otolaryngology 07/10/15 Rupert Byers MD [address] [place] [address] Obstetrics & Gynecology Gynecology 02/06/16 Ines Villar MD [address] [place] [phone] Internal Medicine - Cardiovascular Disease 11/17/17 Opal Henderson MD [address] [place] [phone] Cardiology 11/29/17 06/17/22 documented as of [...] from records protected by Federalconfidentiality rules ( [facility] rules restrict any use of the information [...] person's specific written consent to the redisclosure. [id number].[facility]
--- OUTSIDE RECORDS SUMMARY | 2025-01-01 21:51 | XMS_ITS | Encounter Summary ---
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 No / Unsure 06/24/2022 10:42 AM CDT documented as of this encounter Plan of Treatment Not on file documented as of this encounter Results * Mammography screening digital bilateral (08/19/2022 9:30 AM CDT) Anatomical Region Laterality Modality Breast Bilateral Mammography 08/19/2022 9:47 AM CDT Impressions 08/19/2022 9:48 AM CDT Negative mammogram. Negative (BI-RADS 1). Recommendation: Screening mammogram in one year unless otherwise clinically indicated. [id number] Narrative 08/19/2022 9:48 AM CDT Examination: MAMMO SCREENING DIGITAL BILATERAL Clinical history: Screening. Estimated lifetime risk of breast cancer is 6.4% using the Anel model, which suggests average risk. BREAST DENSITY: B - Scattered fibroglandular tissue Comparison: Mammogram dated 06/11/2021, 05/15/2020, 04/22/2018. Technique: 3-D tomosynthesis views were obtained with reconstructed 2-D images and reviewed with CAD Findings: There are scattered fibroglandular elements. No suspicious abnormalities are identified. us Rupert Byers MD IMG MAMMOGRAPHY ORDERABLES Fin al Result documented in this encounter Visit Diagnoses Diagnosis Screening mammogram, encounter for- Primary Screening mammogram, encounter for documented in this encounter Care Teams Bootmaker Relationship Specialty Start Date End Date Juan A Gomez MD [facility] [place] [id number] PCP - General Family Medicine 02/20/11 Prosper Cutler MD [address] [place] [phone] Otolaryngology 07/10/15 Rupert Byers MD [address] [place] [address] Obstetrics & Gynecology Gynecology 02/06/16 Ines Villar MD [address] [place] [phone] Internal Medicine - Cardiovascular Disease 11/17/17 [...] person's specific written consent to the redisclosure. [id number][facility]
--- OUTSIDE RECORDS SUMMARY | 2025-01-01 21:51 | XMS_ITS | Clinical Summary ---
Author Organization [facility] Address [address] [place] [address] Care Team Providers Care E Commerce Developer Name Role Phone Juan A Gomez MD Primary Care Provider [phone] Allergies Active Allergy Reactions Criticality Noted Date Comments Atorvastatin Other/Unknown (See Comments) 08/25/2021 Codeine Other/Unknown (See Comments),Hives,Itching, Nausea And Vomiting 02/20/2011 Other reaction(s): unknown Other Myalgia 08/25/2021 Penicillin G Other/Unknown (See Comments) 03/04/2016 Penicillins Other/Unknown (See Comments) 02/20/2011 Statins Myalgia,Other/Unknow n (See Comments) 06/19/2014 Medications diphenhydrAMIN E (BENADRYL) 25 MG capsule Take 1 capsule (25 mg) by mouth Active metFORMIN (GLUCOPHAGE) 1000 MG tablet 0 Active metoprolol succinate (TOPROL-XL) 100 MG XL tablet TAKE 1 TABLET BY MOUTH EVERY DAY 9 Active magnesium oxide (MAG-OX) 400 MG tablet Take 2 tablets (800 mg) by mouth Active ibuprofen (MOTRIN) 800 MG tablet Take 1 tablet (800 mg) by mouth Active lisinopril (PRINIVIL, ZESTRIL) 5 MG tablet Take 1 tablet (5 mg) by mouth Active traZODone (DESYREL) 50 MG tablet TAKE 1 TABLET BY MOUTH AT BEDTIME FOR SLEEP 0 Active ondansetron (ZOFRAN) 4 MG tablet TAKE 1 TABLET BY MOUTH THREE TIMES A DAY NEEDED FOR 7 DAYS 3 Active ALPRAZolam (XANAX) 0.25 MG tablet 1 tablet (0.25 mg) as needed for Anxiety 3 Active fluticasone (FLONASE) 50 MCG/ACT nasal spray 2 Hugo MARCSU once a day Suspension 6 Active pioglitazone (ACTOS) 30 MG tablet Take 1 tablet (30 mg) by mouth daily Active glipiZIDE (GLUCOTROL) 10 MG tablet Take 1 tablet (10 mg) by mouth 2 times daily 4 Active montelukast (SINGULAIR) 10 MG tablet Take 1 tablet (10 mg) by mouth every evening 30 tablet 11 5 12/09/19 26 Active albuterol 108 (90 Base) MCG/ACT inhaler Inhale 2 puffs by mouth every 6 (six) hours if needed 18 g 11 5 12/09/19 26 Active montelukast (SINGULAIR) 10 MG tablet Take 1 tablet (10 mg) by mouth 8 12/09/19 25 Discontinu ed(Reorder ) albuterol 108 (90 Base) MCG/ACT inhaler INHALE 2 PUFFS INTO THE LUNGS EVERY 6 HOURS NEEDED FOR 30 DAYS 3 12/09/19 25 Discontinu ed(Reorder ) Active Problems Problem Noted Date Diagnosed Date Age-related osteoporosis wit hout current pathological fracture 12/08/2024 Magnesium deficiency 12/08/2024 Sedative, hypnotic or anxiolytic dependence, unc omplicated 12/08/2024 Solitary pulmonary nodule 12/08/2024 Atherosclerosis of aorta 01/05/2024 Chronic obstructive pulmonary disease 11/09/2019 Allergic rhinitis 11/09/2019 Muscle pain 06/20/2019 Type 2 diabetes mellitus with other specified co mplication 12/21/2018 Mild intermittent asthma 11/17/2017 Pure hypercholesterolemia 09/28/2017 Ventricular ectopic complex 02/06/2016 Well adult health check 07/30/2015 Obstructive sleep apnea syndrome in adult 2015 Essential hypertension with goal blood pressure less than 130/80 06/29/2013 Palpitations 06/29/2013 MILLARD (dyspnea on exertion) 06/14/2013 Hypomagnesemia 06/14/2013 PAC (premature atrial contraction) 06/14/2013 Asthma 02/01/2008 Chronic rhinitis 02/01/2008 Obesity, unspecified 02/01/2008 Encounters Date Type Department Care Team Description 12/08/2024 8:45 AM CDT [facility] [place] [address] [place] [phone] Yasemin Mcdonald MD Lung nodule (Primary Dx); Chronic obstructive pulmonary disease, unspecified COPD type (HCC); Dyspnea, unspecified type 12/08/2024 [facility] [place] [address] [place] [phone] Rebecca Clinton, PROFESSIONAL PROGRAMMER ANALYST Other (Chest CT) from Last 3 Months Immunizations Immunization Administration Dates Next Due Covid-19 21 Day Interval Pfizer 06/02/2021,04/01 Influenza =>65yo, High Dose, Preservative Free 02/23/2024,03/09/2023 Influenza Quadrivalent, Pres ervative Free 02/24/2022,02/24/2021,02/21/2020,2018,02/04/2018,03/16/2017,01/16/2015,1 04/08/2013,05/18/2013,02/08/2012, 011 Influenza Split Virus 06/21/2019,03/01/2018,05/06 Influenza Split Virus Preser vative Free 12/19/2015 Tetanus 06/28/1996 Family History Medical History Relation Name Comments Lung Cancer Brother 1 Lung Cancer Brother 2 Lung Cancer Brother 3 Lung Cancer Brother 4 Lung Cancer Father Lung Cancer Mother Lung Cancer Sister 1 Lung Cancer Sister 2 Relation Name Status Comments Brother 1 Brother 2 Brother 3 Brother 4 Brother 5 Father Mother Sister 1 Sister 2 Social History Tobacco Use Types Packs/Day Years Used Date Smoking Tobacco: Former Cigarettes 3 32 1 8 - 1989 Smokeless Tobacco: Never Tobacco Cessation:Counseling Given: Yes Comments Unknown Sex and Gender Information Value Date Recorded Sex Assigned at Not on file Legal Sex Female 10:11 AM CDT Gender Identity Not on file Sexual Orientation Not on file Last Filed Vital Signs [...] Mass Index 31.68 12/08/2024 8:44 AM CDT Plan of Treatment Upcoming Encounters Date Type Department Care Team (Late st Contact Info) Description 12/19/2025 8:15 AM CDT [facility] [place] [address] [facility] [address] Yasemin Mcdonald MD [address] [facility] [place] [address] Health Maintenance Due Date Last Done Comments DIABETIC FOOT EXAM 1957 Diabetes follow-up every 6 months by HEMOGLOBIN A1C 1957 Diabetic Eye Exam 1957 Hepatitis C Screening ages 18 to 79 once 1957 LIPID TESTING 1957 Medicare Annual Wellness (AWV) 1957 URINARY MICROALBUMIN IN DIABETES 1957 MMR VACCINES (1 of 1 - Standard series) 1958 DEPRESSION SCREENING 1969 Pneumococcal Vaccine: 50 and over (1 of 2 - PCV) 1976 Colon Cancer Screening 2002 ADULT TETANUS 06/28/2006 06/28/1996 Zoster Vaccine (Recombinant Vaccine) (1 of 2) 07/01/2007 RSV Vaccines (1 - Risk 60-74 years 1-dose series) 2017 DEXA SCAN SCREENING 2022 Fall Risk Assessment 2022 BREAST CANCER SCREENING 10/04/2024 10/05/19 24, 10/05/2023, 08/19/2022, Additional history exists Influenza Vaccine 11/03/2024 02/23/2024, , 02/24/2022, Additional history exists COVID-19 Immunization ( season) 2024 06/02/2021, 04/01/2021 BMI Above/Below Normal Parameters 12/08/2025 12/08/2024, 12/08/2024, 01/05/2024, Additional history exists HEPATITIS A VACCINES Aged Out No long er eligible based on patient's age to complete this topic HEPATITIS B VACCINES Aged Out No long er eligible based on patient's age to complete this topic HIB VACCINES Aged Out No longer eligi ble based on patient's age to complete this topic HPV VACCINES Aged Out No longer eligi ble based on patient's age to complete this topic IPV VACCINES Aged Out No longer eligi ble based on patient's age to complete this topic MENINGOCOCCAL VACCINE Aged Out No chriss nirmala eligible based on patient's age to complete this topic Meningococcal B Vaccine Aged Out No l onger eligible based on patient's age to complete this topic ROTAVIRUS VACCINES Aged Out No longer eligible based on patient's age to complete this topic Insurance MEDICARE MEDICARE Care Teams E Commerce Developer Relationship Specialty Start Date End Date Juan A Gomez MD [address] [place] [address] PCP - General Family Medicine 07/28/19
[2025-01-01 22:00] VITALS: PULSE 85; RESP 20; O2SAT 95
[2025-01-01 22:08] LABS: Alanine Aminotransferase 21 U/L (12-78); Albumin Level 4.2 g/dl (3.5-5.0); Albumin/Globulin Ratio 1.7 (1.1-1.8); Alkaline Phosphatase 81 U/L (38-126); Anion Gap 12.4 mEq/L (5-15); Aspartate Amino Transferase 29 U/L (14-36); Bilirubin,Total 0.5 mg/dl (0.2-1.3); Blood Urea Nitrogen 24 mg/dl (7-17); Calcium 9.8 mg/dl (8.4-10.2); Carbon Dioxide 25 mmol/L (22.0-30.0); Chloride 102 mmol/L (98-107); Creatinine Clearance Estimated 55 mL/min (50-200); Creatinine,Serum 1.30 mg/dl (0.52-1.04); Estimated Glomerular Filt Rate 41 ml/min (>60); GFR (African American) 49 ML/MIN (>60); Globulin 2.5 g/dL (1.3-3.2); Glucose 151 mg/dl (74-100); Potassium 4.4 mmoL/L (3.5-5.1); Sodium 135 mmol/L (136-145); Total Protein,Serum 6.7 g/dl (6.3-8.2)
[2025-01-01 22:09] LABS: Hematocrit 36.9 % (37.0-47.0); Hemoglobin 12.4 g/dL (12.2-16.2); Immature Granulocytes % 0.3 %; Mean Corpuscular HGB Conc 33.6 g/dL (31.8-35.4); Mean Corpuscular Hemoglobin 30.4 pg (27.0-31.2); Mean Corpuscular Volume 90.4 fl (81-99); Nucleated Red Blood Cells % 0 %; Platelet Count 266 K/mm3 (142-424); Red Blood Count 4.08 M/mm3 (4.20-5.40); Red Cell Distribution Width-SD 41.9 fL; White Blood Count 10.3 K/mm3 (4.8-10.8)
[2025-01-01 22:15] VITALS: PULSE 84; RESP 20; O2SAT 95
[2025-01-01 22:15] LABS: Activated Partial Thrombo Time 23.7 seconds (22.8-30.6); INR 0.96 (0.9-1.1); Prothrombin Time 10.7 seconds (10.1-12.5)
[2025-01-01 22:30] VITALS: PULSE 80; RESP 13; O2SAT 95
[2025-01-01 22:32] LABS: Total Cells Counted 100
[2025-01-01 22:45] VITALS: PULSE 72; RESP 22; O2SAT 94
[2025-01-01 23:26] LABS: Hepatitis C Ab Qual. W/ RFX NEGATIVE (Negative)
[2025-01-02 00:04] VITALS: PULSE 89; RESP 18; O2SAT 95
[2025-01-02 00:06] VITALS: BP 120/40; PULSE 86; RESP 15; O2SAT 95
[2025-01-02 00:51] VITALS: BP 116/51; PULSE 74; RESP 16; TEMP 36.8; O2SAT 96
== END 2025-01-02 00:56 | disposition home or self-care (01) ==
PROVIDERS: Emergency Provider Student in an Organized Health Care Education/Training Program
DX: R06.02 Shortness of breath (principal); T78.3XXA Angioneurotic edema, initial encounter
CPT/HCPCS: 80053; 85007; 85025; 85610; 85730; 86803; 87389; 96372; 96374; 96375; 99285; J0169; J1200; J2919; J7050